=== PATIENT | male | born 1935 | race Caucasian/White ===

== ENCOUNTER 2017-03-06 12:40 | Outpatient (CLI) | payer MEDICARE ==
[2017-03-06 14:46] LABS: Hemoglobin 14.6 g/dL (14.0-18.0); Mean Corpuscular HGB CONC 33.7 g/dL (32.0-36.0); Mean Corpuscular Hemoglobin 30.3 pg (27.0-31.0); Mean Corpuscular Volume 90.1 fl (80.0-94.0); Mean Platelet Volume 8.2 fL (7.4-10.4); Platelet Count 252 thou/uL (130-400); RBC Distribution Width 14.1 % (11.5-14.5); Red Blood Cell (RBC) Count 4.81 mill/uL (4.70-6.10); White Blood Cell (WBC) Count 7.6 thou/uL (4.8-10.8)
[2017-03-06 15:14] LABS: ALT (SGPT) 14 U/L (8-55); AST (SGOT) 13 U/L (5-34); Albumin 4.5 g/dL (3.4-4.8); Alkaline Phosphatase 90 U/L (40-150); Anion Gap 16 mmol/L (10-20); BUN (Urea Nitrogen) 20 mg/dL (8.4-25.7); Calc. Creatinine Clearance 0 mL/min (70-130); Calcium 9.3 mg/dL (7.8-10.44); Carbon Dioxide 24 mmol/L (23-31); Cardiac Risk 5.7 (Less than 4.5); Chloride 101 mmol/L (98-107); Cholesterol 198 mg/dl (< 200 Desired); Estimated GFR-MDRD 49; Globulin 2.8 g/dL (2.4-3.5); Glucose 181 mg/dL (83-110); HDL Cholesterol 35 mg/dL (>60 Neg Risk); LDL Cholesterol, Calculated 137 mg/dL; Potassium 4.1 mmol/L (3.5-5.1); Protein, Total 7.3 g/dL (5.8-8.1); Sodium 137 mmol/L (136-145); Triglycerides 131 mg/dL (Less than 150)
[2017-03-06 15:20] LABS: PTT 28.6 SEC (22.9-36.1); Prothrombin Time 13.6 SEC (12.0-14.7)
--- NOTE | 2017-03-30 16:37 | EKG ---
Test Reason : Blood Pressure : / mmHG Vent. Rate : 074 BPM Atrial Rate : 074 BPM P-R Int : 152 ms QRS Dur : 074 ms QT Int : 388 ms P-R-T Axes : 043 084 042 degrees QTc Int : 430 ms Sinus rhythm with Premature atrial complexes Otherwise normal ECG No previous ECGs available Confirmed by DR. Carlene ARRIAGA ([id number]) on 03/30/2017 4:37:06 PM Referred By: JACKSON Confirmed By:DR. Carlene ARRIAGA
== END 2017-03-06 12:41 | disposition home or self-care (01) ==
LOC: LABBT 12:40
PROVIDERS: ATTEND Internal Medicine Cardiovascular Disease
DX: Z01.810 Encounter for preprocedural cardiovascular examination (principal); I25.10 Atherosclerotic heart disease of native coronary artery without angina pectoris
CPT/HCPCS: 80053; 80061; 85027; 85610; 85730; 93005; 93010

== ENCOUNTER 2017-03-08 08:05 | Day surgery (SDC) | payer MEDICARE ==
[2017-03-06 12:50] VITALS: BMI 27.7
[2017-03-08] MEDS ORDERED: Heparin 10,000 UNITS/1 ML VIAL ONE (09:55)
[2017-03-08] MEDS ORDERED: Nitroglycerin 100MG/250ML BOT 250 ML ONE (09:55)
[2017-03-08] MEDS ORDERED: Verapamil 5 MG/2 ML VIAL ONE (09:56)
[2017-03-08] MEDS ORDERED: Midazolam HCl 2 mg/2 ml Vial ONE (10:21)
[2017-03-08] MEDS ORDERED: Fentanyl 100 MCG/2 ML VIAL ONE (10:21)
== END 2017-03-08 15:43 | disposition home or self-care (01) ==
LOC: CCL 08:05
PROVIDERS: ATTEND Internal Medicine Cardiovascular Disease
DX: I25.10 Atherosclerotic heart disease of native coronary artery without angina pectoris (principal); I10 Essential (primary) hypertension; Z79.82 Long term (current) use of aspirin; Z79.899 Other long term (current) drug therapy; Z95.1 Presence of aortocoronary bypass graft; Z95.5 Presence of coronary angioplasty implant and graft
CPT/HCPCS: 85347; 93005; 93454; 93798; C1760; C1769 ×2; C1874; C1887; C9600; 92928; 99152; 99153; J1644; J2250; J3010

== ENCOUNTER 2019-03-12 16:44 | Inpatient (IN) | payer MEDICARE ==
--- NOTE | 2019-03-12 17:29 | RAD ---
Chest one view HISTORY: Sepsis. FINDINGS: Cardiac silhouette and pulmonary vasculature are unremarkable. Mediastinum is midline with aortic calcification. Oblique artifact overlies the right chest. No confluent airspace consolidation or evidence of pneumothorax. IMPRESSION: Atherosclerosis. No active cardiopulmonary abnormalities are otherwise demonstrated.
[2019-03-12 17:33] LABS: #Lymphocytes 1.6 thou/uL (1.20-3.40); #Monocytes 1.2 thou/uL (0.11-0.59); #Neutrophils 11.9 thou/uL (1.40-6.50); %Basophils 0.2 % (0.0-1.0); %Eosinophils 0.3 % (0.0-10.0); %Lymphocytes 10.8 % (21.0-51.0); %Neutrophils 80.7 % (42.0-75.0); Hemoglobin 15.2 g/dL (14.0-18.0); Mean Corpuscular HGB CONC 33.9 g/dL (32.0-36.0); Mean Corpuscular Hemoglobin 29.9 pg (27.0-31.0); Mean Corpuscular Volume 88.1 fL (78.0-98.0); RBC Distribution Width 16.6 % (11.5-14.5); Red Blood Cell (RBC) Count 5.09 mill/uL (4.70-6.10); White Blood Cell (WBC) Count 14.7 thou/uL (4.8-10.8)
[2019-03-12 17:42] LABS: Anisocytosis SLIGHT = 6-15 cells (100X) (0-5/hpf); Elliptocytes SLIGHT = 2-5 cells (100X) (0-1/hpf); Large Platelets SLIGHT; MDiff Complete? YES; Mean Platelet Volume 12.3 fL (7.4-10.4); Ovalocytes SLIGHT = 2-5 cells (100X) (0-1/hpf); Platelet Count 118 thou/uL (130-400); Platelet Morphology Comment Appears Decreased; Poikilocytosis SLIGHT = 6-15 cells (100X) (0-5/hpf)
[2019-03-12 17:48] LABS: ALT (SGPT) 97 U/L (8-55); AST (SGOT) 75 U/L (5-34); Albumin 3.5 g/dL (3.4-4.8); Alkaline Phosphatase 155 U/L (40-110); Anion Gap 15 mmol/L (10-20); BUN (Urea Nitrogen) 32 mg/dL (8.4-25.7); Calc. Creatinine Clearance 0 mL/min (70-130); Calcium 8.4 mg/dL (7.8-10.44); Carbon Dioxide 22 mmol/L (23-31); Chloride 99 mmol/L (98-107); Estimated GFR-MDRD 24; Globulin 2.4 g/dL (2.4-3.5); Glucose 167 mg/dL (83-110); Potassium 3.8 mmol/L (3.5-5.1); Protein, Total 5.9 g/dL (5.8-8.1); Sodium 132 mmol/L (136-145)
[2019-03-12 18:04] LABS: Bilirubin Negative (Negative); Blood, Urine Negative (Negative); Clarity Clear (Clear); Glucose, Urine (Dipstick) Normal (Negative); Leukocyte Negative Leu/uL (Negative); Nitrite Negative (Negative); Protein, Urine (Dipstick) 20 mg/dL (Neg-Trace); Urobilinogen Normal mg/dL (Less than 2)
[2019-03-12] MEDS ORDERED: Bisacodyl 5 MG TAB PO PRN (19:28)
[2019-03-12] MEDS ORDERED: Acetaminophen 325 MG TAB PO PRN (19:28)
[2019-03-12 19:48] LABS: CKMB 6.6 ng/mL (0-6.6)
[2019-03-12 20:34] LABS: Lactic Acid 2.5 mmol/L (0.5-2.2)
[2019-03-12] MEDS ORDERED: Dextrose 50% Abboject 50 ML SYRINGE SLOW IVP PRN (20:37)
[2019-03-12] MEDS ORDERED: HumaLOG 300 UNITS/3 ML VIAL SC PRN ×2 (20:37)
[2019-03-12] MEDS ORDERED: Dextrose 5% in Water 1,000 ML IV PRN (20:37)
[2019-03-12] MEDS ORDERED: Acetaminophen 650 MG Suppository PR PRN (20:40)
--- NOTE | 2019-03-12 21:15 | HP ---
TIME OF ASSESSMENT: 1800. REASON FOR ADMISSION: Ascites and possible CHF exacerbation. HISTORY OF PRESENT ILLNESS: Mr. Palmer is a pleasant 83-year-old gentleman who has a known history of dementia and a brain meningioma, therefore is unable to provide much information. No family at bedside. Able to answer questions appropriately as far as how he is feeling at this present time. The patient denies having any pain. Has no chest pain or shortness of breath. Denies any abdominal pain. States he is unsure why he is here. Reports living with his . Per the ED note, he was brought in due to persistent vomiting for the last several days. He has been getting progressively weak for the last several days. Has also had decreased oral intake. According to the ED notes, the patient reportedly fell 3 times of this week, but did not have any injuries. The patient was initially brought in to [place] ER, where he underwent an EKG that showed normal sinus rhythm with a heart rate of 87. There was concern for dehydrations, therefore, he received 2 L of IV fluids and was started on IV antibiotics with vancomycin and Zosyn. He was not febrile at any time. Blood pressure was stable and heart rate was normal. He underwent laboratory studies that showed an elevated white count of 14.7, neutrophil of 88.7%. Sodium low at 135 and when repeated here, it was further decreased to 132. BUN elevated at 36 and slightly improved to 32 on repeated. His creatinine was elevated at 2.83 and improved to 2.60 following fluids. Total bilirubin elevated at 3.4, AST 75, ALT 97, alkaline phosphatase 155. CK-MB is 6.6. Troponin 0.135. Urinalysis done was unremarkable. Chest x-ray obtained was also unremarkable. On arrival to the emergency department here, he was given IV fluids (NS at 150 mL/hr) Of note, the patient recently underwent a catheterization which showed a previously placed proximal LAD stent patent with mild ISR, severe distal LAD lesion, small vessel toward apex. Mild LM disease, mild to moderate LCX disease, severe mid RCA disease status post successful PCI with LARRY. The patient had been recommended Brilinta and aspirin 81 mg for one year and then aspirin indefinitely based on those findings. Catheterization had been done by Dr. Elias. REVIEW OF SYSTEMS: Difficult to obtain given underlying dementia. At this present time, the patient has no complaints. No family at bedside. PAST MEDICAL HISTORY: 1. Hypertension. 2. Brain meningioma. 3. Glaucoma. 4. Cataracts. 5. Skin cancer. 6. Seizures. 7. Type 2 diabetes. 8. Stage 3 chronic kidney disease. 9. Asthma. PAST SURGICAL HISTORY: 1. Cardiac stents x2. 2. Hernia repair. 3. Tonsillectomy. 4. Cataract surgery. 5. Skin lesion removed. SOCIAL HISTORY: The patient lives with his family. Denies any alcohol consumption or illicit drug use. No tobacco use. States he mobilizes independently. ALLERGIES: No known drug allergies. CURRENT MEDICATIONS: 1. Aspirin 2. Atorvastatin. 3. Plavix. 4. Glipizide. 5. Latanoprost. 6. Keppra. 7. Losartan/HCTZ. 8. Coreg. PHYSICAL EXAMINATION: GENERAL: The patient appears well developed, well nourished, is in no acute distress. VITAL SIGNS: Temperature 98.5, pulse 89, blood pressure 143/114, O2 saturation 98% on room air, repeat blood pressure was 129/100. HEENT: Normocephalic and atraumatic. Pupils are equal, round, and reactive to light. Sclerae without icterus. Oropharynx is clear. Oral mucosa dry. NECK: Supple. LUNGS: Clear to auscultation bilaterally without wheezes, rales, or rhonchi. CARDIAC: Regular rate and rhythm. ABDOMEN: Distended, but soft, nontender. No guarding or rigidity. No renal angle tenderness. EXTREMITIES: Notable for +1 pitting edema involving the bilateral lower extremities. Power 5/5 in all limbs. The patient able to pull himself up on the stretcher and sit upright. NEUROLOGIC: Alert and oriented to person and place. No neuro deficits on exam. The patient does have underlying dementia. SKIN: Dry. INVESTIGATIONS: As mentioned above in HPI. IMPRESSION AND PLAN: Mr. Palmer is a very pleasant 83-year-old gentleman who has underlying dementia and brain meningioma as well as known coronary artery disease and hypertension, being admitted for persistent nausea, vomiting, and dehydration. The patient without any nausea or vomiting at present. CT of the abdomen and pelvis was apparently done at [facility] and showed ascites. Also diverticulosis and nonspecific hyperdensity emanating from the right kidney which represents a hyperdense cyst. Chest x-ray unremarkable. Urinalysis normal. No clear source for infection. White count is elevated at 14.7. LFTs deranged. It appears that the patient is experiencing fluid overload; per discussion with Dr. Washington we will add BNP. Hold IV fluids and if needed, resume gentle hydration. Continue to trend LFTs. Also continue to monitor renal function, which has slightly improved. Consider Nephrology consult if no further improvement. He did have an indeterminate troponin 0.135 and we will continue to trend troponins. The patient is asymptomatic at present. We will monitor blood pressure and resume home medications once verified. P.r.n. antihypertensives will be ordered as well. Monitor blood glucose and initiate insulin sliding scale. Gastrointestinal prophylaxis with famotidine. Deep venous thrombosis prophylaxis with mechanical SCDs. Code status is full. His surrogate decision maker is his , Josseline Palmer. Case discussed with Dr. Washington, who agrees with plan of care as described above. Job ID: [id number] MTDD
[2019-03-12] MEDS ORDERED: Atorvastatin Calcium 40 MG TAB PO SCH (21:45)
[2019-03-12] MEDS ORDERED: Latanoprost 0.005% Ophth Soln 2.5 ml Bottle EA EYE SCH (21:45)
[2019-03-12] MEDS ORDERED: Brimonidine Tartrate 0.2% Ophth Soln 5 ml Bottle EA EYE SCH (21:45)
[2019-03-12] MEDS ORDERED: Timolol 0.5% Ophth Soln 5 ml Bottle EA EYE SCH (21:45)
[2019-03-12 22:27] LABS: ALT (SGPT) 105 U/L (8-55); AST (SGOT) 88 U/L (5-34); Albumin 3.6 g/dL (3.4-4.8); Alkaline Phosphatase 163 U/L (40-110); Anion Gap 16 mmol/L (10-20); BUN (Urea Nitrogen) 34 mg/dL (8.4-25.7); Bilirubin, Total 2.9 mg/dL (0.2-1.2); Calc. Creatinine Clearance 25 mL/min (70-130); Calcium 8.5 mg/dL (7.8-10.44); Carbon Dioxide 24 mmol/L (23-31); Chloride 98 mmol/L (98-107); Estimated GFR-MDRD 22; Globulin 2.5 g/dL (2.4-3.5); Glucose 186 mg/dL (83-110); Potassium 3.9 mmol/L (3.5-5.1); Protein, Total 6.1 g/dL (5.8-8.1); Sodium 134 mmol/L (136-145)
[2019-03-12] MEDS ORDERED: Vancomycin 1.5 GRAM/300 ML BAG 1.5 GM in Premix Bag 1 BAG IVPB SCH (22:45)
[2019-03-12] MEDS ORDERED: Piperacillin/Tazobactam 4.5 GM in Sodium Chloride 0.9% 100 ML IVPB SCH (23:00)
[2019-03-12] MEDS: Famotidine/PF 20 mg/2ml Vial SLOW IVP SCH (23:15)
[2019-03-12] MEDS ORDERED: Carvedilol 6.25 MG TAB PO SCH (23:15)
--- NOTE | 2019-03-12 23:43 | ULT ---
Sonogram right upper quadrant HISTORY: Right upper quadrant patent. Abnormal liver function tests. FINDINGS: Shadowing stones are present within the gallbladder lumen that is incompletely distended. N o gallbladder wall thickening or pericholecystic fluid. Common duct is 0.2 cm. Liver unremarkable without focal mass or intrahepatic biliary dilatation. Small amount of free fluid. IMPRESSION: Cholelithiasis. No evidence of acute biliary obstruction. Free fluid within the abdomen.
[2019-03-13 04:55] LABS: #Basophils 0.1 thou/uL (0.0-0.2); #Eosinphils 0.2 thou/uL (0.0-0.7); #Monocytes 1.3 thou/uL (0.11-0.59); #Neutrophils 9.4 thou/uL (1.40-6.50); %Basophils 0.6 % (0.0-1.0); %Eosinophils 1.3 % (0.0-10.0); %Lymphocytes 15.6 % (21.0-51.0); %Monocytes 10.2 % (0.0-10.0); %Neutrophils 72.4 % (42.0-75.0); Hemoglobin 14.3 g/dL (14.0-18.0); Mean Corpuscular HGB CONC 32.3 g/dL (32.0-36.0); Mean Corpuscular Hemoglobin 28.3 pg (27.0-31.0); Mean Corpuscular Volume 87.7 fL (78.0-98.0); Platelet Count 141 thou/uL (130-400); RBC Distribution Width 16.7 % (11.5-14.5); Red Blood Cell (RBC) Count 5.04 mill/uL (4.70-6.10); White Blood Cell (WBC) Count 12.9 thou/uL (4.8-10.8)
[2019-03-13] MEDS: Piperacillin/Tazobactam 2.25 GM in Sodium Chloride 0.9% 100 ML IVPB SCH ×2 (05:16→12:16)
[2019-03-13] MEDS ORDERED: Carvedilol 3.125 MG TAB PO SCH (09:00)
[2019-03-13] MEDS ORDERED: LEVETIRACETAM 500 MG PO SCH (09:00)
[2019-03-13] MEDS ORDERED: Brimonidine Tartrate 0.2% Ophth Soln 5 ml Bottle EA EYE SCH (09:00)
[2019-03-13] MEDS: DorzolamidE/Timolol 2%/0.5% Ophth Soln 10 ml Bottle EA EYE SCH ×2 (09:00→20:45)
[2019-03-13] MEDS ORDERED: Timolol 0.5% Ophth Soln 5 ml Bottle EA EYE SCH (09:00)
[2019-03-13] MEDS ORDERED: Enoxaparin Sodium 40 MG/0.4 ML SYRINGE SC SCH (09:00)
[2019-03-13] MEDS: Carvedilol 6.25 MG TAB PO SCH ×2 (10:07→20:35)
[2019-03-13] MEDS: Famotidine/PF 20 mg/2ml Vial SLOW IVP SCH (10:07)
[2019-03-13] MEDS: Aspirin 81 mg Enteric Coated Tablet PO SCH (10:07)
[2019-03-13] MEDS: Clopidogrel Bisulfate 75 MG TAB PO SCH (10:07)
--- NOTE | 2019-03-13 20:11 | PDOC.HOSPP ---
- Subjective Subjective: Feels well. No complaints. Eating well. Drinking well. No nausea. Got up with PT. - Objective Vital Signs & Weight: Vital Signs (12 hours) Temp Pulse Pulse Pulse Resp BP BP 03/13/19 15:28 97.5 F L 87 20 03/13/19 14:10 81 80 128/86 146/83 H 03/13/19 11:48 98.7 F 79 16 03/13/19 10:17 03/13/19 09:56 97.7 F 93 19 BP Pulse Ox 03/13/19 15:28 148/87 H 97 03/13/19 14:10 03/13/19 11:48 131/75 97 03/13/19 10:17 96 03/13/19 09:56 122/86 96 Weight Admit Weight 192 lb 3.2 oz Weight 193 lb I&O: 03/12/19 03/13/19 03/14/19 06:59 06:59 06:59 Intake Total 450 720 Balance 450 720 Result Diagrams: 03/13/19 04:16 03/12/19 21:52 Additional Labs: Accuchecks 03/13/19 03/13/19 03/13/19 16:22 11:10 05:56 POC Glucose 226 H 144 H 155 H Hospitalist ROS - Medication Medications: Active Medications Generic Name Dose Route Start Last Admin Trade Name Marta PRN Reason Stop Dose Admin Aspirin 81 mg 03/13/19 09:00 03/13/19 10:07 Ecotrin PO 81 mg DAILY RHEA Administration Carvedilol 6.25 mg 03/13/19 09:00 03/13/19 10:07 Coreg PO 6.25 mg BID RHEA Administration Clopidogrel Bisulfate 75 mg 03/13/19 09:00 03/13/19 10:07 Plavix PO 75 mg DAILY RHEA Administration Dorzolamide/Timolol 1 drop 03/13/19 09:00 03/13/19 09:00 Cosopt 2-0.5% Ophth Soln EA EYE Not Given BID RHEA Latanoprost 1 drop 03/13/19 21:00 03/13/19 10:08 Xalatan 0.005% Ophth Soln EA EYE 1 drop HS RHEA Administration - Exam General Appearance: NAD, awake alert Neck: supple, symmetric, no JVD, no thyromegaly, no lymphadenopathy, no carotid bruit Heart: RRR, no murmur, no gallops, no rubs, normal peripheral pulses Respiratory: CTAB, no wheezes, no rales, no ronchi, normal chest expansion, no tachypnea, normal percussion Gastrointestinal: soft, non-tender, non-distended, normal bowel sounds, no palpable masses, no hepatomegaly, no splenomegaly, no bruit Extremities: no cyanosis, no clubbing, no edema Musculoskeletal: normal tone, normal strength, no muscle wasting Psychiatric: normal affect, normal behavior, A&O x 3 Hosp A/P (1) Nausea & vomiting Code(s): R11.2 - NAUSEA WITH VOMITING, UNSPECIFIED Status: Acute (2) Dehydration Code(s): E86.0 - DEHYDRATION Status: Acute (3) Elevated LFTs Code(s): R94.5 - ABNORMAL RESULTS OF LIVER FUNCTION STUDIES Status: Acute (4) CAD (coronary artery disease) Code(s): I25.10 - ATHSCL HEART DISEASE OF [place] CORONARY ARTERY W/O ANG PCTRS Status: Acute (5) HTN (hypertension) Code(s): I10 - ESSENTIAL (PRIMARY) HYPERTENSION Status: Acute (6) Leukocytosis Code(s): D72.829 - ELEVATED WHITE BLOOD CELL COUNT, UNSPECIFIED Status: Acute (7) Diabetes mellitus Code(s): E11.9 - TYPE 2 DIABETES MELLITUS WITHOUT COMPLICATIONS Status: Acute (8) Meningioma Code(s): D32.9 - BENIGN NEOPLASM OF [place]ENING[place], UNSPECIFIED Status: Acute - Plan Doing well. No N/V. Eating and drinking with no problem. No abd. pain. WBC improving. LFT's basically stable. Abd. US nml. Echo P. If he continues to do well in am and echo ok, consider DC.
[2019-03-13] MEDS: levETIRAcetam 500 MG TAB PO SCH (20:35)
[2019-03-13] MEDS ORDERED: Latanoprost 0.005% Ophth Soln 2.5 ml Bottle EA EYE SCH (21:00)
[2019-03-13] MEDS ORDERED: Atorvastatin Calcium 40 MG TAB PO SCH (21:00)
[2019-03-13] MEDS ORDERED: Vancomycin HCl 750 MG in Sodium Chloride 0.9% 250 ML 250 ML IVPB SCH (23:59)
[2019-03-14 04:44] LABS: ALT (SGPT) 113 U/L (8-55); AST (SGOT) 83 U/L (5-34); Albumin 3.3 g/dL (3.4-4.8); Alkaline Phosphatase 140 U/L (40-110); Anion Gap 13 mmol/L (10-20); BUN (Urea Nitrogen) 44 mg/dL (8.4-25.7); Bilirubin, Total 2.1 mg/dL (0.2-1.2); Calc. Creatinine Clearance 22 mL/min (70-130); Calcium 8.2 mg/dL (7.8-10.44); Carbon Dioxide 25 mmol/L (23-31); Chloride 99 mmol/L (98-107); Estimated GFR-MDRD 19; Globulin 2.4 g/dL (2.4-3.5); Glucose 215 mg/dL (83-110); Potassium 3.5 mmol/L (3.5-5.1); Protein, Total 5.7 g/dL (5.8-8.1); Sodium 133 mmol/L (136-145)
[2019-03-14 05:02] LABS: #Basophils 0.1 thou/uL (0.0-0.2); #Eosinphils 0.2 thou/uL (0.0-0.7); #Lymphocytes 1.4 thou/uL (1.20-3.40); #Monocytes 1.1 thou/uL (0.11-0.59); #Neutrophils 7.9 thou/uL (1.40-6.50); %Basophils 0.7 % (0.0-1.0); %Eosinophils 2.1 % (0.0-10.0); %Lymphocytes 12.7 % (21.0-51.0); %Monocytes 10.1 % (0.0-10.0); %Neutrophils 74.4 % (42.0-75.0); Elliptocytes MARKED = >16 cells (100X) (0-1/hpf); Hemoglobin 13.5 g/dL (14.0-18.0); MDiff Complete? YES; Mean Corpuscular HGB CONC 33.1 g/dL (32.0-36.0); Mean Corpuscular Hemoglobin 28.9 pg (27.0-31.0); Mean Corpuscular Volume 87.4 fL (78.0-98.0); Mean Platelet Volume 9.8 fL (7.4-10.4); Platelet Count 117 thou/uL (130-400); Platelet Morphology Comment Appears Decreased; Poikilocytosis SLIGHT = 6-15 cells (100X) (0-5/hpf); RBC Distribution Width 16.5 % (11.5-14.5); Red Blood Cell (RBC) Count 4.67 mill/uL (4.70-6.10); White Blood Cell (WBC) Count 10.6 thou/uL (4.8-10.8)
[2019-03-14] MEDS ORDERED: Famotidine/PF 20 mg/2ml Vial SLOW IVP SCH (09:00)
[2019-03-14] MEDS: levETIRAcetam 500 MG TAB PO SCH (09:16)
[2019-03-14] MEDS: Aspirin 81 mg Enteric Coated Tablet PO SCH (09:16)
[2019-03-14] MEDS: Carvedilol 6.25 MG TAB PO SCH (09:16)
[2019-03-14] MEDS: Clopidogrel Bisulfate 75 MG TAB PO SCH (09:16)
[2019-03-14] MEDS: DorzolamidE/Timolol 2%/0.5% Ophth Soln 10 ml Bottle EA EYE SCH (09:17)
[2019-03-14 11:37] VITALS: BMI 30.4
[2019-03-14 16:39] VITALS: BP 99/65; TEMP 96.7
--- NOTE | 2019-03-15 10:37 | DIS ---
DATE OF ADMISSION: 03/12/2019 DATE OF DISCHARGE: 03/14/2019 DISCHARGE DIAGNOSES: 1. Nausea and vomiting. 2. Dehydration. 3. Elevated liver enzymes. 4. Coronary artery disease. 5. Hypertension. 6. Leukocytosis. 7. Diabetes mellitus. 8. Meningioma. 9. Acute on chronic kidney injury. 10. Chronic kidney disease, stage 3. 11. Elevated troponins, felt to be essentially normal for age and renal function. HISTORY OF PRESENT ILLNESS: This patient is an 83-year-old male with a history of known coronary artery disease, followed by Dr. Elias with a fairly recent heart catheterization with significant coronary artery disease and prior stenting, who presented initially to the [facility] with a history of several days of intractable nausea and vomiting and decreased oral intake and had fallen a couple of times previously in the week. He initially presented to the [place] [facility] where he had concerns for dehydration, received a couple of liters of fluid and was started empirically on vancomycin and Zosyn without a specific indication of infection. White count was 14.7 and slight worsening renal function based on his previous baselines and had elevated liver enzymes including total bilirubin elevated at 3.4 and a troponin of 0.135. Chest x-ray was unremarkable. The patient was hydrated aggressively and subsequently transferred to our facility. HOSPITAL COURSE: The patient's symptoms of nausea and vomiting appeared to bill fairly promptly. He was subsequently able to eat and drink adequate amounts of fluids without difficulty. A CT scan of the abdomen in [place] revealed a hyperdense renal cyst, some cholelithiasis, some diverticulosis and concern for ascites. Followup ultrasound at our facility showed an unremarkable liver with some cholelithiasis, but no evidence of obstruction or acute cholecystitis. The patient had no abdominal pain on his exam. Followup echocardiogram showed a very limited study, but what appeared to be normal ejection fraction. His labs revealed improvement of his leukocytosis. His liver enzymes remained slightly elevated, but his bilirubin progressively declined down to 2.1. He was getting up with physical therapy using a walker. He did have some difficulty with sleep in the hospital and was up for a good bit of the night and slept for a good portion of the day. However, the patient's reported that was not significantly uncommon for him and felt like he would do best returning back to his home environment. Ultimately, it was felt that the patient may have passed a biliary stone, causing elevation of liver enzymes and bilirubin, which were somewhat improving. 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 He was felt appropriate for discharge home on the day of discharge. Temperature was 97.6, pulse 78, respirations 16, O2 saturation was 97% on room air, and BP ranged from 99/65 to 122/78. He was generally sleepy throughout the day of discharge, but had gotten up and walked with physical therapy. DISPOSITION: The patient was discharged to home. He will have home health and home physical therapy. He will need his labs repeated soon as was discussed with the patient's , and I attempted to send a message to Prachi Estevez, his primary care provider, but at the time of discharge, not received reply. He will be on a heart healthy diabetic diet. ACTIVITY: As tolerated. DISCHARGE MEDICATIONS: Will include, 1. Xalatan eye drops one drop each eye at bedtime. 2. Aspirin 81 mg daily. 3. Losartan and hydrochlorothiazide 100-12.5 one p.o. daily. 4. Atorvastatin 40 mg at bedtime. 5. Glipizide 5 mg q.a.m. 6. Plavix 75 mg daily. 7. Keppra 500 mg daily. 8. Dorzolamide one drop each eye daily. 9. Carvedilol 6.25 mg b.i.d. DISCHARGE FOLLOWUP: He is to follow up with Prachi Estevez, and home health will be established. He can return to the hospital at anytime should he have the need to do so. Time spent in discharge activities was 33 min. Job ID: [id number] MTDD
--- NOTE | 2019-03-17 00:42 | PQF ---
GIOVANA PEREYRA DAVID R MD [id number] CLINICAL DOCUMENTATION CLARIFICATION FORM: POST DISCHARGE Addendum to original discharge summary date: ____ Late entry note date: __ DATE: 03/17/2019 ATTN: Mark Ferro Please exercise your independent, professional judgment in responding to the clarification form. Clinical indicators are provided on the bottom of this form for your review In your clinical opinion based on clinical findings below, can you please identify the etiology of Nausea and vomiting if due to: Please check appropriate box(s): [ ] Cholelithiasis [ ] Dehydration [ ] Other diagnosis [ x ] Unable to determine In addition, please specify: Present on Admission (POA): [ ] Yes [ ] No [ ] Unable to determine For continuity of documentation, please document condition throughout progress notes and discharge summary. Thank You. CLINICAL INDICATORS - SIGNS / SYMPTOMS / LABS Laboratory Chemistry 03/12 BUN 32, 2.60 H&P p3 03/12 Tasha BURTON Being admitted for persistent nausea, vomiting and dehydration Discharge summary p1 03/14 Dr Garcia Followup ultrasound at our facility showered unremarkable liver with some cholelithiasis but no evidence of obstruction or acute cholecystitis RISK FACTORS H&P p1 03/12 83 year-old gentlemen H&P p3 03/12 Dehydration H&P p3 03/12 Renal failure TREATMENTS: APR 26 IV Pepcid APR 26 IV Hydration H&P p3 03/12 Monitor renal function (This form is maintained as a part of the permanent medical record) 2014 [employer]. All Rights Reserved [email or web address] [not provided] MTDD
== END 2019-03-14 19:00 | disposition home health service (06) | DRG 392 ==
LOC: ERS 16:44 → 2NO 21:05
PROVIDERS: ADMIT Internal Medicine; ATTEND Internal Medicine
DX: R11.2 Nausea with vomiting, unspecified (principal); N17.9 Acute kidney failure, unspecified; E86.0 Dehydration; N18.3 Chronic kidney disease, stage 3 (moderate); I25.10 Atherosclerotic heart disease of native coronary artery without angina pectoris; R94.5 Abnormal results of liver function studies; I12.9 Hypertensive chronic kidney disease with stage 1 through stage 4 chronic kidney disease, or unspecified chronic kidney disease; E11.22 Type 2 diabetes mellitus with diabetic chronic kidney disease; R79.89 Other specified abnormal findings of blood chemistry; K80.20 Calculus of gallbladder without cholecystitis without obstruction; H40.9 Unspecified glaucoma; J45.909 Unspecified asthma, uncomplicated; G40.909 Epilepsy, unspecified, not intractable, without status epilepticus; Z86.011 Personal history of benign neoplasm of the brain; Z85.828 Personal history of other malignant neoplasm of skin; Z95.5 Presence of coronary angioplasty implant and graft
CPT/HCPCS: 36415; 36416; 71045; 76705; 80053; 81003; 82553; 83605; 83690; 83880; 85025; 85060; 93306; 96360; 96361; J2543; J3490; S0028

== ENCOUNTER 2019-04-04 15:43 | Inpatient (IN) | payer MEDICARE ==
--- NOTE | 2019-04-04 16:21 | PDOC.FPRHP ---
- History of Present Illness Chief Complaint: Low BP, feeling bad History of Present Illness: Levi Palmer is an 83 year old M with a PMH of CAD s/p Stent, meningioma, HTN, Dementia, DM2, CKD who was transferred for [place] ED for sepsis. Pt saw PCP today and had BP of 62/48. He was sent to [place] ED where he was given 500 cc NS, 1 g Vanc, 2 g Cefepime. He states that he has been feeling weak and had abdominal pain with associated nausea for the last couple days. Denies any fever, chills, falls, vision changes, headaches, chest pain, dyspnea , dysuria. Pt is poor historian and does not provide reliable medical history or HPI. History predominantly for ERMD report and documentation. Spouse provided some history. In November, he had two seizures. He has slowly not been doing well since. Saw Dr. Torres and pt/family decided against surgical intervention. Went to clinic today for follow up for medications. Weakness over last few weeks due to vomiting. Bellstand Attendant: Curt PCP: Quinton Estevez [place] Neurologist: Melissa - Allergies/Adverse Reactions Allergies Allergy/AdvReac Type Severity Reaction Status Date / Time No Known Allergies Allergy Unverified 03/06/17 12:50 - Home Medications Medication Instructions Recorded Confirmed Type Aspirin [Aspir-Low] 81 mg PO DAILY 03/06/17 03/12/19 History Latanoprost [Xalatan 0.005% Ophth 1 drop EA EYE HS 03/06/17 03/12/19 History Soln] Losartan/Hydrochlorothiazide 1 tab PO DAILY 03/06/17 03/12/19 History [Losartan-Hctz 100-12.5 mg Tab] Atorvastatin Calcium [Lipitor] 40 mg PO HS 03/08/17 03/12/19 History Clopidogrel Bisulfate [Plavix] 75 mg PO DAILY 03/12/19 03/12/19 History Dorzolamide HCl/Timolol Maleat 1 drop EA EYE BID 03/12/19 03/12/19 History [Cosopt Ophth Solution] glipiZIDE [glipiZIDE ER] 5 mg PO QAM-WM 03/12/19 03/12/19 History levETIRAcetam [Levetiracetam ER] 500 mg PO DAILY 03/12/19 03/12/19 History Carvedilol [Coreg] 6.25 mg PO BID #60 tab 03/14/19 Rx - History PMHx: Meningioma, PSHx: FHx: Social: - Vital signs BP: [] HR: [] RR: [] Tmax: [] Pox: []% on [] Wt: [] FMR H&P: Upper Level - Plan Date/Time: 04/04/19 1620 I, [], have evaluated this patient and agree with findings/plan as outlined by architect intern resident. Pertinent changes/additions are listed here.
[2019-04-04 18:38] LABS: Troponin I 0.196 ng/mL (< 0.028)
[2019-04-04] MEDS ORDERED: Acetaminophen 325 MG TAB PO PRN (18:39)
[2019-04-04] MEDS ORDERED: Ondansetron PF 4 MG/2 ML Vial IVP PRN (19:59)
[2019-04-04] MEDS ORDERED: Ondansetron ODT 4 MG TAB SL PRN (19:59)
[2019-04-04] MEDS ORDERED: Cefepime 1 GM in Sodium Chloride 0.9% 100 ML IVPB SCH (21:00)
[2019-04-04 21:25] VITALS: BMI 30.6
[2019-04-04] MEDS: Sodium Chloride 0.9% 1,000 ML IV SCH (21:43)
[2019-04-04] MEDS: Heparin 5,000 UNITS/ML VIAL SC SCH (22:17)
[2019-04-04 22:28] LABS: Troponin I 0.154 ng/mL (< 0.028)
[2019-04-04] MEDS: DorzolamidE/Timolol 2%/0.5% Ophth Soln 10 ml Bottle EA EYE SCH (22:39)
[2019-04-04] MEDS: Latanoprost 0.005% Ophth Soln 2.5 ml Bottle EA EYE SCH (22:39)
--- NOTE | 2019-04-05 00:24 | HP ---
CHIEF COMPLAINT: Hypertension, weakness. HISTORY OF PRESENT ILLNESS: The patient is an 83-year-old male who resides in a longterm, who presents to the hospital for generalized weakness and was found to be hypotensive at the clinic today. His blood pressure was noted to be in the low 60s. At this time, he was transported to the ER for further evaluation. He was given a total of 500 mL of normal saline, which had good results with his blood pressure. He was admitted here for possible sepsis protocol. The patient's is at the bedside. She states that the patient has been having ongoing nausea for the past 3 weeks. He was seen here in February for nausea and at that time, CT of abdomen and pelvis was done which did not indicate any acute abnormalities except for renal cyst versus mass. He did also have a brain CT. The patient has a known history of meningioma and he also has history of seizures with possible even normal pressure hydrocephalus. The patient does follow Neurology. The patient also had a workup done with an abdominal ultrasound, which did not indicate any acute abnormalities. The ultrasound indicated just cholelithiasis. No evidence of acute biliary obstruction. The patient's states that at times she has noticed that the patient will have abdominal pain and more nausea after eating a fatty meal. PAST MEDICAL HISTORY: As of the followin. He has a history of nonspecific dementia. 2. He has a history of brain meningioma. 3. Seizures. 4. Glaucoma. 5. Cataracts. 6. Type 2 diabetes. 7. Chronic kidney disease stage 3. 8. Asthma. PAST SURGICAL HISTORY: Cardiac stents x2, hernia repair, tonsillectomy, cataract surgery, skin lesion removed. SOCIAL HISTORY: He is currently a DNR. I did speak with the patient's . There is no history of alcohol use, drug use, or tobacco history. The patient currently is not very mobile. ALLERGIES: NO KNOWN DRUG ALLERGIES. MEDICATIONS: Through his last discharge are as of the followin. He is on aspirin 81 mg daily. 2. Losartan and hydrochlorothiazide. 3. Atorvastatin 40 mg at bedtime. 4. Glipizide 5 mg q.a.m. 5. Plavix 75 mg daily. 6. Keppra 500 mg daily. 7. Dorzolamide one drop each eye daily. 8. Carvedilol 6.25 b.i.d. REVIEW OF SYSTEMS: Unable to obtain. PHYSICAL EXAMINATION: VITAL SIGNS: As of the following: Temperature 97.9, respirations 18, 98% on room air, pulse of 79, blood pressure of 124/85. GENERAL: The patient is awake, alert, and oriented x2. CV: S1, S2 present. No murmurs, rubs, or gallops. LUNGS: Clear to auscultation. No rhonchi or wheezes noted. ABDOMEN: Soft and nontender. Bowel sounds are present x2. EXTREMITIES: He does have +2 edema. Pedal pulses are present x2. NEUROVASCULAR: Neurovascular-renner, no focal deficits noted. SKIN: No cuts, lesions or bruises noted. LABORATORY RESULTS: As of the following; WBCs of 11.0, hemoglobin of 16.1, hematocrit of 54.2, platelets of 175. Chemistries; sodium of 132, potassium of 4.2, BUN of 101, creatinine 4.53, baseline is 3.7. Lactic acid is 2.4. Bilirubin is 2.0, AST is 44, ALT is 39, alkaline phosphatase is 164. Troponin is 0.189. BNP is 1042. TSH is 4.78. The patient did have a chest x-ray and upon my evaluation, chest x-ray appears to have mild pulmonary congestion. ASSESSMENT AND PLAN: The patient is a very pleasant 83-year-old male, who presents to the hospital with complaints of hypotension. 1. Hypotension, possibly sepsis. However, patient's chest x-ray does not show any acute physiology of possible infectious etiology. I will go ahead and do an influenza swab, urine was not collected. The patient has already received antibiotics, however, we will collect urine. He has been having nausea. Gallbladder etiology is a possibility. We will get a HIDA scan ordered for him for better evaluation. I will also start him on some cefepime for tonight. The patient has been resuscitated with IV hydration. I did speak with Nephrology and we will continue normal saline at 50 mL an hour for another liter. 2. Lactic acidosis most likely secondary to problem #1. We will continue mild hydration. We will continue to monitor. 3. Hypotension. This could be possible some pericardial effusion. The patient's last echo that was done in February indicated some pericardial effusion. I have asked the ER physician to do a bedside echo just to make sure that there is no pericardial effusion. Given the fact that I do not really have a specific etiology for his hypotension except for dehydration, which is definitely a possibility. I will continue the IV hydration and adjust with gentle hydration if his blood pressure has improved dramatically. I will hold his blood pressure medications for now. 4. Acute kidney injury and chronic kidney disease stage 3. Nephrology has been consulted. We will continue to monitor. 5. Mild elevated LFTs. The patient also was noted to have some ascites. This could be related to possibly some right heart failure, could cause some portal congestion. I am not sure about that and we will continue to monitor. 6. Elevated troponins. We will trend the troponins. EKG indicated very low voltage. If troponins tend to worsen, consult Cardiology. However, patient's family does want Cardiology to be consulted. I will also get an echocardiogram. 7. Deep venous thrombosis prophylaxis. We will put the patient on subcu heparin. Job ID: [id number]
[2019-04-05] MEDS: Cefepime 1 GM in Sodium Chloride 0.9% 100 ML IVPB SCH ×2 (01:34→17:21)
[2019-04-05 02:25] LABS: #Basophils 0.1 thou/uL (0.0-0.2); #Eosinphils 0.1 thou/uL (0.0-0.7); #Lymphocytes 1.7 thou/uL (1.20-3.40); #Neutrophils 8.1 thou/uL (1.40-6.50); %Basophils 0.8 % (0.0-1.0); %Eosinophils 0.6 % (0.0-10.0); %Lymphocytes 15.6 % (21.0-51.0); %Monocytes 9.1 % (0.0-10.0); %Neutrophils 73.8 % (42.0-75.0); Hemoglobin 15.8 g/dL (14.0-18.0); Mean Corpuscular HGB CONC 32.5 g/dL (32.0-36.0); Mean Corpuscular Hemoglobin 29.9 pg (27.0-31.0); Mean Corpuscular Volume 92.2 fL (78.0-98.0); Mean Platelet Volume 13.8 fL (7.4-10.4); Platelet Count 140 thou/uL (130-400); RBC Distribution Width 18.1 % (11.5-14.5); Red Blood Cell (RBC) Count 5.28 mill/uL (4.70-6.10)
[2019-04-05 02:46] LABS: Anion Gap 18 mmol/L (10-20); BUN (Urea Nitrogen) 97 mg/dL (8.4-25.7); Calc. Creatinine Clearance 16 mL/min (70-130); Carbon Dioxide 19 mmol/L (23-31); Chloride 98 mmol/L (98-107); Estimated GFR-MDRD 13; Glucose 202 mg/dL (83-110); Potassium 4.6 mmol/L (3.5-5.1); Sodium 130 mmol/L (136-145)
[2019-04-05 02:47] LABS: Troponin I 0.158 ng/mL (< 0.028)
[2019-04-05 06:14] LABS: Bacteria/HPF None Seen HPF (None Seen); Bilirubin Negative (Negative); Blood, Urine Negative (Negative); Clarity Clear (Clear); Glucose, Urine (Dipstick) Normal (Negative); Leukocyte Negative Leu/uL (Negative); Nitrite Negative (Negative); Protein, Urine (Dipstick) 20 mg/dL (Neg-Trace); RBC/HPF 0-3 HPF (0-3); Squamous Epithelial 0-3 HPF (0-3); Urobilinogen Normal mg/dL (Less than 2); WBC/HPF 0-3 HPF (0-3)
[2019-04-05 06:16] LABS: Urine Culture Reflex No No
[2019-04-05] MEDS ORDERED: Lorazepam 2 MG/ML VIAL SLOW IVP PRN (08:23)
[2019-04-05] MEDS: Aspirin 81 mg Enteric Coated Tablet PO SCH (08:44)
[2019-04-05] MEDS: Heparin 5,000 UNITS/ML VIAL SC SCH ×2 (08:45→21:36)
[2019-04-05] MEDS: levETIRAcetam 500 MG TAB PO SCH (08:45)
[2019-04-05] MEDS: DorzolamidE/Timolol 2%/0.5% Ophth Soln 10 ml Bottle EA EYE SCH ×2 (08:46→21:35)
--- NOTE | 2019-04-05 13:11 | PRG ---
DATE OF SERVICE: 04/05/2019 SUBJECTIVE: Patient was seen and examined at bedside and overnight events noted. Patient denies any shortness of breath or chest pain or palpitation. No history of nausea or vomiting or diarrhea or fever or chills or cramps. OBJECTIVE: GENERAL: This is a well build male, in no acute distress. VITAL SIGNS: Temperature 98.7, pulse 80, respiratory rate 18. Blood pressure 99/65. HEENT: Atraumatic, normocephalic. Oral mucosa is moist NECK: Supple. CARDIOVASCULAR: S1, S2 heard. Rate and rhythm regular. RESPIRATORY: Clear to auscultation. GASTROINTESTINAL: Abdomen is soft. MUSCULOSKELETAL: No tenderness. No edema. DERMATOLOGIC: No skin rash. NEUROLOGIC: Alert and awake and oriented X3. No focal neurologic deficits. Moving all the extremities. PSYCHIATRIC: Mood and affect normal. LABORATORY DATA: Potassium is 4.6, BUN is 97, creatinine is 4.2. ASSESSMENT AND PLAN: 1. Acute kidney injury on chronic kidney stage 4, stable. 2. Hyponatremia, limit fluid. 3. Acidosis. 4. Edema, controlled. 5. Hypoalbuminemia. 6. Renal lesion. We will check renal ultrasound. 7. Continue IV fluids as tolerated. We will follow. Job ID: [id number]
[2019-04-05] MEDS ORDERED: Morphine 2 MG/ML SYRINGE SLOW IVP SCH (14:15)
--- NOTE | 2019-04-05 14:55 | CON ---
DATE OF CONSULTATION: 04/04/2019 The patient was seen at the ER and this is a late entry. CONSULTING PHYSICIAN: Mojgan Bethea MD REASON FOR CONSULTATION: Acute kidney injury. REASON FOR ADMISSION: Weakness. HISTORY OF PRESENT ILLNESS: This is an 83-year-old male with history of dementia, meningioma, seizure, glaucoma, type 2 diabetes, who came to the hospital with weakness and hypotension. The patient was seen by sent to the ER and was eventually transferred over here. The patient was very weak, tired. No chest pain or palpitation. No fever or chills. No nausea or vomiting reported. PAST MEDICAL HISTORY: Positive for dementia, meningioma, seizure, glaucoma, cataract, and type 2 diabetes. PAST SURGICAL HISTORY: Cardiac stents, hernia repair, and tonsillectomy. HOME MEDICATIONS: 1. Aspirin. 2. Losartan. 3. Atorvastatin. 4. Glipizide. 5. Plavix. 6. Keppra. 7. Dorzolamide. 8. Carvedilol. ALLERGIES: NO KNOWN DRUG ALLERGIES. SOCIAL HISTORY: No smoking, alcohol, or illicit drugs abuse. FAMILY HISTORY: No history of any kidney disease. REVIEW OF SYSTEMS: CONSTITUTIONAL: Negative for weight loss or gain, ability to conduct usual activities. SKIN: Negative for rash, itching. EYES: Negative for double vision, pain. ENT/MOUTH: Negative for nose bleeding, neck stiffness, pain, tenderness. CARDIOVASCULAR: Negative for palpitations, dyspnea on exertion, orthopnea. RESPIRATORY: Negative for shortness of breath, wheezing, cough, hemoptysis, fever or night sweats. GASTROINTESTINAL: Negative for poor appetite, abdominal pain, heartburn, nausea, vomiting, constipation, or diarrhea. GENITOURINARY: Negative for urgency, frequency, dysuria, nocturia. MUSCULOSKELETAL: Negative for pain, swelling. NEUROLOGIC/PSYCHIATRIC: Negative for anxiety, depression. ALLERGY/IMMUNOLOGIC: Negative for skin rash, bleeding tendency. PHYSICAL EXAMINATION: GENERAL: This is a well-built male, in no apparent distress. VITAL SIGNS: Temperature 97.6, pulse 83, respiratory rate 18, and blood pressure 99/65. HEENT: Atraumatic, normocephalic. Oral mucosa moist. NECK: Supple. CARDIOVASCULAR: S1 and S2 heard. Distant heart sounds. GASTROINTESTINAL: Abdomen is soft. MUSCULOSKELETAL: . DERMATOLOGIC: No skin rash. NEUROLOGIC: Alert and awake. PSYCHIATRIC: Mood and affect normal. LABORATORY DATA: Hemoglobin is 16.1. Potassium 4.2, BUN is 101, and creatinine is 4.5. ASSESSMENT AND PLAN: 1. Acute kidney injury on chronic kidney disease, stage 3. Avoid nephrotoxins. Continue hydration. 2. Hyponatremia. Continue hydration. 3. Acidosis. 4. Edema, controlled. 5. Hypoalbuminemia. 6. Lactic acidosis. 7. Renal lesion. We will check renal ultrasound. Avoid nephrotoxins. Continue hydration as tolerated. We will follow. Thank you for the consult. Job ID: [id number]
--- NOTE | 2019-04-05 16:45 | NM ---
HEPATOBILIARY SCAN: 04/05/19 HISTORY: Cholelithiasis, right upper quadrant pain. Nausea. RADIOPHARMACEUTICAL: 4.5 millicuries technetium 99m Mebrofenin injected intravenously. FINDINGS: The patient was pretreated with 1.7 micrograms of CCK-8 intravenously half an hour prior to the trace r injection. There is good tracer extraction of the liver with prompt excretion of the biliary tract and small bow el loops. No filling of the gallbladder after 90 minutes. Imaging was performed for an additional 30 minutes following the intravenous administration of 2 mg I V morphine. There is filling of the gallbladder on the morphine augmented images. IMPRESSION: 1. No evidence of cystic duct obstruction/acute cholecystitis. 2. Findings are consistent with chronic cholecystitis. POS: OFF
--- NOTE | 2019-04-05 16:47 | ULT ---
RENAL ULTRASOUND 04/05/19 HISTORY: Acute renal insufficiency. FINDINGS: The right kidney measures 8.6 cm in length without hydronephrosis. The left kidney is not visualized. There is solid appearing mass arising from the lateral aspect of the right mid kidney measuring 4 x 4 x 2.6 cm. The urinary bladder is unremarkable. Incidental note is made of ascites and a left pleural effusion. IMPRESSION: Solid appearing right renal mass suspicious for malignancy. Evaluation with contrast enhanced CT scan or MRI using the adrenal mass protocol is recommended. POS: OFF
[2019-04-05] MEDS: Sodium Chloride 0.9% 1,000 ML IV SCH (17:23)
--- NOTE | 2019-04-05 20:11 | PDOC.HOSPP ---
- Subjective Encounter Date: 04/05/19 Encounter Time: 10:20 Subjective: Pt seen for followup re: acute on chronic stage 4 renal failure. Pt lethargic, not answering questions, could not complete ROS. - Objective Vital Signs & Weight: Vital Signs (12 hours) Pulse Resp BP Pulse Ox 04/05/19 16:43 78 12 112/65 93 L Weight Weight 195 lb 7 oz I&O: 04/04/19 04/05/19 04/06/19 06:59 06:59 06:59 Intake Total 775 Balance 775 Result Diagrams: 04/05/19 02:13 04/05/19 02:13 Additional Labs: Labs and MARs reviewed by me Hospitalist ROS - Review of Systems ROS unobtainable: due to mental status - Medication Medications: Active Medications Generic Name Dose Route Start Last Admin Trade Name Freq PRN Reason Stop Dose Admin Aspirin 81 mg 04/05/19 09:00 04/05/19 08:44 Ecotrin PO 81 mg DAILY RHEA Administration Dorzolamide/Timolol 1 drop 04/04/19 21:00 04/05/19 08:46 Cosopt 2-0.5% Ophth Soln EA EYE 1 drop BID RHEA Administration Sodium Chloride 1,000 mls @ 50 mls/hr 04/04/19 18:45 04/05/19 17:23 Normal Saline 0.9% IV Not Given .Q20H RHEA Cefepime HCl 1 gm/ Sodium 100 mls @ 200 mls/hr 04/05/19 02:00 04/05/19 17:21 Chloride IVPB 100 mls 0200,1400 RHEA Administration Latanoprost 1 drop 04/04/19 21:00 04/04/19 22:39 Xalatan 0.005% Ophth Soln EA EYE 1 drop HS RHEA Administration Levetiracetam 500 mg 04/05/19 09:00 04/05/19 08:45 Keppra PO Not Given DAILY RHEA Lorazepam 0.5 mg 04/05/19 08:23 04/05/19 10:44 Ativan SLOW IVP 04/05/19 23:59 0.5 mg ONE PRN Administration Anxiety Sodium Chloride 10 ml 04/04/19 21:00 04/05/19 10:45 Flush - Normal Saline IVF Not Given Q12HR RHEA - Exam General Appearance: NAD Eye: anicteric sclera ENT: moist mucosa Neck: supple Heart: RRR Respiratory: CTAB Gastrointestinal: soft, non-tender, normal bowel sounds Musculoskeletal: no muscle wasting Psychiatric: lethargic Hosp A/P (1) Acute metabolic encephalopathy Code(s): G93.41 - METABOLIC ENCEPHALOPATHY Status: Acute (2) Acute worsening of stage 4 chronic kidney disease Code(s): N18.4 - CHRONIC KIDNEY DISEASE, STAGE 4 (SEVERE) Status: Acute (3) Chronic cholecystitis Code(s): K81.1 - CHRONIC CHOLECYSTITIS Status: Chronic (4) CAD (coronary artery disease) Code(s): I25.10 - ATHSCL HEART DISEASE OF [place] CORONARY ARTERY W/O ANG PCTRS Status: Chronic (5) Diabetes mellitus Code(s): E11.9 - TYPE 2 DIABETES MELLITUS WITHOUT COMPLICATIONS Status: Chronic (6) HTN (hypertension) Code(s): I10 - ESSENTIAL (PRIMARY) HYPERTENSION Status: Chronic (7) Meningioma Code(s): D32.9 - BENIGN NEOPLASM OF MENINGES, UNSPECIFIED Status: Chronic (8) Renal mass Code(s): N28.89 - OTHER SPECIFIED DISORDERS OF KIDNEY AND URETER Status: Chronic - Plan plan discussed w/ family, continue antibiotics Continue cefepime, follow blood cultures. Consult urology re: renal mass. Creatinine improved to 4.28 today. Continue keppra. HTN controlled.
[2019-04-05] MEDS: Latanoprost 0.005% Ophth Soln 2.5 ml Bottle EA EYE SCH (21:35)
[2019-04-06] MEDS: Cefepime 1 GM in Sodium Chloride 0.9% 100 ML IVPB SCH ×2 (02:10→14:44)
[2019-04-06] MEDS: Heparin 5,000 UNITS/ML VIAL SC SCH ×2 (09:29→21:34)
[2019-04-06 09:42] LABS: #Basophils 0.1 thou/uL (0.0-0.2); #Eosinphils 0.1 thou/uL (0.0-0.7); #Monocytes 0.9 thou/uL (0.11-0.59); #Neutrophils 7.1 thou/uL (1.40-6.50); %Basophils 0.8 % (0.0-1.0); %Eosinophils 1.4 % (0.0-10.0); %Lymphocytes 19.3 % (21.0-51.0); %Monocytes 9.1 % (0.0-10.0); %Neutrophils 69.4 % (42.0-75.0); Hemoglobin 16.2 g/dL (14.0-18.0); Mean Corpuscular HGB CONC 32.2 g/dL (32.0-36.0); Mean Corpuscular Hemoglobin 29.6 pg (27.0-31.0); Mean Corpuscular Volume 91.7 fL (78.0-98.0); Platelet Count 155 thou/uL (130-400); RBC Distribution Width 18.3 % (11.5-14.5); White Blood Cell (WBC) Count 10.3 thou/uL (4.8-10.8)
[2019-04-06 09:45] LABS: Anion Gap 16 mmol/L (10-20); BUN (Urea Nitrogen) 102 mg/dL (8.4-25.7); Calc. Creatinine Clearance 17 mL/min (70-130); Calcium 7.8 mg/dL (7.8-10.44); Carbon Dioxide 22 mmol/L (23-31); Chloride 99 mmol/L (98-107); Estimated GFR-MDRD 14; Glucose 172 mg/dL (83-110); Potassium 4.2 mmol/L (3.5-5.1); Sodium 133 mmol/L (136-145)
[2019-04-06 09:48] LABS: ALT (SGPT) 26 U/L (8-55); AST (SGOT) 26 U/L (5-34); Albumin 2.8 g/dL (3.4-4.8); Alkaline Phosphatase 128 U/L (40-110); Bilirubin, Direct 0.9 mg/dL (0.1-0.3); Bilirubin, Total 1.4 mg/dL (0.2-1.2); Protein, Total 5.6 g/dL (5.8-8.1)
[2019-04-06] MEDS: Aspirin 81 mg Enteric Coated Tablet PO SCH (10:02)
[2019-04-06] MEDS: levETIRAcetam 500 MG TAB PO SCH (10:02)
[2019-04-06] MEDS: DorzolamidE/Timolol 2%/0.5% Ophth Soln 10 ml Bottle EA EYE SCH ×2 (10:15→21:32)
--- NOTE | 2019-04-06 13:42 | PRG ---
DATE OF SERVICE: 04/06/2019 SUBJECTIVE: Patient was seen and examined at bedside and overnight events noted. Patient denies any shortness of breath or chest pain or palpitation. No history of nausea or vomiting or diarrhea or fever or chills or cramps. OBJECTIVE: GENERAL: This is a well-built male, very lethargic. VITAL SIGNS: Temperature 97.1, heart rate 70, respiratory rate 14, blood pressure 97/67. HEENT: Atraumatic, normocephalic. Oral mucosa is moist NECK: Supple. CARDIOVASCULAR: S1, S2 heard. Rate and rhythm regular. RESPIRATORY: Clear to auscultation. GASTROINTESTINAL: Abdomen is soft. MUSCULOSKELETAL: No tenderness. No edema. DERMATOLOGIC: No skin rash. NEUROLOGIC: Alert and awake and oriented X3. No focal neurologic deficits. Moving all the extremities. PSYCHIATRIC: Mood and affect normal. LABORATORY DATA: Potassium 4.2, BUN is 102, and creatinine is 4.1. ASSESSMENT AND PLAN: 1. Acute kidney injury on chronic kidney disease stage 4, stable labs. No acute indication for dialysis. 2. Lethargy with weakness. 3. Hyponatremia, stable. 4. Acidosis. 5. Edema. 6. Hypoalbuminemia. 7. Renal mass. Urology evaluation pending. We will continue to monitor renal function. No acute indication for dialysis. We will follow. Continue supportive care. Okay with stopping IV fluids for now. Job ID: [id number]
--- NOTE | 2019-04-06 14:02 | PDOC.HOSPP ---
- Subjective Encounter Date: 04/06/19 Encounter Time: 10:00 Subjective: Pt seen for followup re: acute metabolic encephalopathy. More alert today. Denies any abdominal pain. - Objective Vital Signs & Weight: Vital Signs (12 hours) Temp Pulse Pulse Resp BP BP BP 04/06/19 12:20 97.1 F L 70 14 97/67 04/06/19 10:36 76 106/64 101/66 04/06/19 08:03 97.1 F L 77 14 122/78 04/06/19 04:00 97.5 F L 80 16 96/61 Pulse Ox 04/06/19 12:20 94 L 04/06/19 10:36 04/06/19 08:03 95 04/06/19 04:00 95 Weight Weight 195 lb 7 oz I&O: 04/05/19 04/06/19 04/07/19 06:59 06:59 06:59 Intake Total 775 372 Balance 775 372 Result Diagrams: 04/06/19 09:07 04/06/19 09:07 Additional Labs: Labs and MARs reviewed by ma Hospitalist ROS - Review of Systems Constitutional: denies: fever, chills, sweats, weakness, malaise Cardiovascular: denies: chest pain, palpitations, orthopnea, paroxysmal noc. dyspnea, edema, light headedness Gastrointestinal: denies: nausea, vomiting, abdominal pain, diarrhea, constipation, melena, hematochezia - Medication Medications: Active Medications Generic Name Dose Route Start Last Admin Trade Name Freq PRN Reason Stop Dose Admin Aspirin 81 mg 04/05/19 09:00 04/06/19 10:02 Ecotrin PO Not Given DAILY RHEA Dorzolamide/Timolol 1 drop 04/04/19 21:00 04/06/19 10:15 Cosopt 2-0.5% Ophth Soln EA EYE 1 drop BID RHEA Administration Heparin Sodium (Porcine) 5,000 units 04/05/19 21:00 04/06/19 09:29 Heparin SC 5,000 units BID RHEA Administration Cefepime HCl 1 gm/ Sodium 100 mls @ 200 mls/hr 04/05/19 02:00 04/06/19 02:10 Chloride IVPB 100 mls 0200,1400 RHEA Administration Latanoprost 1 drop 04/04/19 21:00 04/05/19 21:35 Xalatan 0.005% Ophth Soln EA EYE 1 drop HS RHEA Administration Levetiracetam 500 mg 04/05/19 09:00 04/06/19 10:02 Keppra PO Not Given DAILY RHEA Sodium Chloride 10 ml 04/04/19 21:00 04/06/19 10:15 Flush - Normal Saline IVF 10 ml Q12HR RHEA Administration - Exam General - other findings: Obese Eye: anicteric sclera ENT: normocephalic atraumatic, moist mucosa Neck: supple, no thyromegaly, no lymphadenopathy Heart: RRR Respiratory: CTAB Gastrointestinal: soft, non-tender, normal bowel sounds Psychiatric: normal affect, normal behavior, oriented to person Hosp A/P (1) Acute metabolic encephalopathy Code(s): G93.41 - METABOLIC ENCEPHALOPATHY Status: Acute (2) Acute worsening of stage 4 chronic kidney disease Code(s): N18.4 - CHRONIC KIDNEY DISEASE, STAGE 4 (SEVERE) Status: Acute (3) Chronic cholecystitis Code(s): K81.1 - CHRONIC CHOLECYSTITIS Status: Chronic (4) CAD (coronary artery disease) Code(s): I25.10 - ATHSCL HEART DISEASE OF [place] CORONARY ARTERY W/O ANG PCTRS Status: Chronic (5) Diabetes mellitus Code(s): E11.9 - TYPE 2 DIABETES MELLITUS WITHOUT COMPLICATIONS Status: Chronic (6) HTN (hypertension) Code(s): I10 - ESSENTIAL (PRIMARY) HYPERTENSION Status: Chronic (7) Meningioma Code(s): D32.9 - BENIGN NEOPLASM OF MENINGES, UNSPECIFIED Status: Chronic (8) Renal mass Code(s): N28.89 - OTHER SPECIFIED DISORDERS OF KIDNEY AND URETER Status: Chronic - Plan Metabolic encephalopathy improving. Continue cefepime, follow blood cultures. Urology consult pending. Creatinine improved to 4.18 today. Continue keppra. HTN controlled. Discussed with surgical service. Pt has no abdo pain and nontender on exam, they recommended conservative management for chronic cholecystitis.
[2019-04-06] MEDS: Senokot S 8.6-50 MG TAB PO PRN (14:56)
--- NOTE | 2019-04-06 15:12 | CON ---
DATE OF CONSULTATION: 04/06/2019 REASON FOR CONSULTATION: 1. Right-sided renal mass. 2. Acute kidney injury. 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 The patient has a history of dementia, meningioma, seizure, glaucoma, and type 2 diabetes. He is cared for by his , who is a retired RN and home health at home. The patient was brought in after being noticed to be weak and having hypotension. The patient has apparently lost his thirst as a symptom. He does have a history of recurrent seizures in the past, but has been taken off his antiseizure medication due to somnolence. The patient was brought to the Emergency Department, eventually transferred and admitted for treatment and therapy. The patient has a blood urea nitrogen in excess of 100 and a creatinine in excess of 4. He has been relatively dehydrated, but has edema of the lower extremities as well. He does have a history of cardiac disease and has two cardiac stents placed in 2013 and in 2018. PAST MEDICAL HISTORY: 1. Dementia. 2. History of recurrent seizure. 3. Meningioma. 4. Glaucoma. 5. Cataract. 6. Type 2 diabetes. 7. Coronary artery disease, status post stents. PAST SURGICAL HISTORY: Includes coronary artery stents, hernia repair, and tonsillectomy. MEDICATIONS: Home medication list includes: 1. Keppra, which he is not currently taking. 2. Aspirin. 3. Losartan. 4. Atorvastatin. 5. Glipizide. 6. Plavix. 7. Dorzolamide. 8. Carvedilol. PHYSICAL EXAMINATION: VITAL SIGNS: Temperature is 97.1. The patient has been afebrile throughout the admission, which began on 04/04/2019. The patient's current pulse rate is 70, respiratory rate 14, O2 saturation on room air is 94%, and blood pressure is 97/67. GENERAL: This is a solemn white male, who predominantly keeps his eyes closed. Does occasionally squint through the left eye. HEAD, EYES, EARS, NOSE, AND THROAT: Extraocular movements are hard to examine as he keeps his eyelids closed. Sclera as what I can see of the left eye appears anicteric. The patient is able to breathe without difficulty. Oropharynx was not examined. LUNGS: Clear to auscultation bilaterally. The patient has relatively shallow breathing. CARDIAC: Regular rate and rhythm. There were no chest scars present. There is no evidence of pacemaker. ABDOMEN: Soft and nontender. There are no palpable masses. GENITOURINARY: Phallus appears to been circumcised, but has overall uncircumcised appearance due to the mons pubis fat distribution. Smegma beneath urethral meatus appears adequate. Testes present bilaterally. Scrotum is smooth, anodular, and nontender. Digital rectal examination is performed, finds a 40 g prostate, which is smooth, anodular, and nontender also. EXTREMITIES: Examination finds 2+ pitting edema of the bilateral lower extremities. There is bilateral lower extremity swelling consistent with generalized edema. LABORATORY STUDIES: The patient's white count is down to 10.3 from 11 on admission, lymphocytes are 19.3, and neutrophil ANC is 7.1. Serum chemistries show a current creatinine of 4.18 with blood urea nitrogen of 102. Potassium is 4.2, total bilirubin is 1.4 with a direct bilirubin of 0.9, alkaline phosphatase is elevated at 1.28, and serum protein is low at 5.6 with albumin of 2.8. Troponins were moderately elevated at 0.154 and 0.158, decreased from 0.196 at admission on 04/04. CT scan of the abdomen and pelvis performed on 03/12/2019 shows a 4.2 cm exophytic right-sided posteriorly located renal cyst. This actually appears to be two cysts to my examination about 2.2 cm or so in diameter. Overall, there is a 4.2 x 2.2 cm in total exophytic lesions. A renal ultrasound on 03/12/2019 was performed as well as a recent renal ultrasound on 04/05/2019. These studies confirm the exophytic characteristic of this lesion and suggests that this could be a renal cell cancer. The patient's lesions are in a size range, which might be suitable for observation, particularly given the patient's multisystem dysfunction. ASSESSMENT AND PLAN: 1. Right-sided exophytic renal cyst x2 or possibly one larger lesion. These lesions are suitable for observation based on my examination and the patient's current life expectancy with his multisystem dysfunction. The patient's multisystem disorders include cognitive secondary to seizure, renal dysfunction, possible cardiac dysfunction, and hepatic dysfunction. At present time, I think simple observation of these lesions is adequate. If the patient was to progress to needing an intervention, consideration of a CT or ultrasound guided renal radiofrequency ablation of the lesions or cryo ablation of lesions could be considered. At the present time, I think his renal function is too poor to consider any type of intervention as a failed intervention could lead to loss of the kidney in total, which would require then hemodialysis. I think his life expectancy would be negatively influenced by any type of intervention at this point. For now, we will plan on observation. He may follow up in my office at [facility] for further followup. 2. Male health issues. Digital rectal examination has no abnormal findings. Based on the patient's age, he should not undergo PSA testing in the future as his life expectancy is less than 10 years and there are no current obstructive features of significance. 3. Urge incontinence, currently managed by incontinence undergarments, which is most likely due to sphincteric dysfunction and the patient's central nervous system disorder in combination. Indwelling catheter is not appropriate for this patient. 4. Renal insufficiency. This appears to be a primary medical disorder. Nephrotoxic agents should be avoided. TIME SPENT: Over 70 minutes initial consultation evaluation, assessment time spent in assessment of this patient today. Job ID: [id number]
[2019-04-06] MEDS: Latanoprost 0.005% Ophth Soln 2.5 ml Bottle EA EYE SCH (21:36)
[2019-04-07] MEDS: Cefepime 1 GM in Sodium Chloride 0.9% 100 ML IVPB SCH ×2 (02:56→16:41)
[2019-04-07 05:59] LABS: Anion Gap 14 mmol/L (10-20); BUN (Urea Nitrogen) 101 mg/dL (8.4-25.7); Calc. Creatinine Clearance 19 mL/min (70-130); Calcium 7.6 mg/dL (7.8-10.44); Carbon Dioxide 17 mmol/L (23-31); Chloride 102 mmol/L (98-107); Estimated GFR-MDRD 15; Glucose 179 mg/dL (83-110); Potassium 4.1 mmol/L (3.5-5.1); Sodium 129 mmol/L (136-145)
[2019-04-07 06:02] LABS: #Basophils 0.1 thou/uL (0.0-0.2); #Eosinphils 0.1 thou/uL (0.0-0.7); #Lymphocytes 1.8 thou/uL (1.20-3.40); #Monocytes 1.1 thou/uL (0.11-0.59); #Neutrophils 6.3 thou/uL (1.40-6.50); %Basophils 0.7 % (0.0-1.0); %Eosinophils 1.3 % (0.0-10.0); %Lymphocytes 19.3 % (21.0-51.0); %Monocytes 11.3 % (0.0-10.0); %Neutrophils 67.5 % (42.0-75.0); Elliptocytes SLIGHT = 2-5 cells (100X) (0-1/hpf); Hemoglobin 14.1 g/dL (14.0-18.0); MDiff Complete? YES; Mean Corpuscular HGB CONC 33.4 g/dL (32.0-36.0); Mean Corpuscular Hemoglobin 30.1 pg (27.0-31.0); Mean Corpuscular Volume 90.2 fL (78.0-98.0); Mean Platelet Volume 12.4 fL (7.4-10.4); Platelet Count 127 thou/uL (130-400); Platelet Morphology Comment Appears Decreased; RBC Distribution Width 17.6 % (11.5-14.5); Red Blood Cell (RBC) Count 4.69 mill/uL (4.70-6.10); White Blood Cell (WBC) Count 9.3 thou/uL (4.8-10.8)
[2019-04-07] MEDS: Aspirin 81 mg Enteric Coated Tablet PO SCH (07:59)
[2019-04-07] MEDS: levETIRAcetam 500 MG TAB PO SCH (07:59)
[2019-04-07] MEDS: Heparin 5,000 UNITS/ML VIAL SC SCH ×2 (07:59→20:26)
[2019-04-07] MEDS: DorzolamidE/Timolol 2%/0.5% Ophth Soln 10 ml Bottle EA EYE SCH ×2 (08:00→20:18)
--- NOTE | 2019-04-07 12:07 | PRG ---
DATE OF SERVICE: 04/07/2019 SUBJECTIVE: This is an 83-year-old gentleman, being seen for acute kidney injury. The patient denied nausea, vomiting, or chest pain. OBJECTIVE: CONSTITUTIONAL: The patient is awake and alert. VITAL SIGNS: Pulse 56, breathing 18, blood pressure 109/56. GENERAL APPEARANCE AND MENTAL STATUS: Fair. HEAD/NECK: Normocephalic. Atraumatic. EYES: EOMI. No deformity. EARS: Clear. No ulcers. NOSE: Intact. No lesions. MOUTH: Clear. No discharge. THROAT: Clear. No exudate. LUNGS: Clear. No crackles. CARDIAC: S1, S2. No rub. ABDOMEN: Benign. Bowel sounds positive. GENITALIA/RECTUM: [place] absent. BACK/EXTREMITIES: Edema 0+. NEUROLOGICAL: Alert and motor intact. SKIN: LYMPHATICS: LABORATORY DATA: Reviewed. ASSESSMENT AND PLAN: 1. Chronic kidney disease stage 4, stable . 2. Anemia, stable. 3. Medication based on GFR, appropriate. No indication for dialysis. 4. recommend gentle hydration. Job ID: [id number]
--- NOTE | 2019-04-07 19:20 | PDOC.HOSPP ---
- Subjective Encounter Date: 04/07/19 Encounter Time: 09:40 Subjective: Pt seen for followup re: acute metabolic encephalopathy. Awake and alert, no complaints. - Objective Vital Signs & Weight: Vital Signs (12 hours) Temp Pulse Resp BP Pulse Ox 04/07/19 08:00 95 04/07/19 07:58 97.5 F L 56 L 18 109/56 L 95 Weight Weight 195 lb 7 oz I&O: 04/06/19 04/07/19 04/08/19 06:59 06:59 06:59 Intake Total 372 720 Balance 372 720 Result Diagrams: 04/07/19 05:22 04/07/19 05:22 Additional Labs: Labs and MARs reviewed by mo Hospitalist ROS - Review of Systems Respiratory: denies: cough, shortness of breath, hemoptysis, SOB with excertion , pleuritic pain, wheezing Genitourinary: denies: dysuria, frequency, incontinence, hematuria, retention - Medication Medications: Active Medications Generic Name Dose Route Start Last Admin Trade Name Freq PRN Reason Stop Dose Admin Aspirin 81 mg 04/05/19 09:00 04/07/19 07:59 Ecotrin PO 81 mg DAILY RHEA Administration Dorzolamide/Timolol 1 drop 04/04/19 21:00 04/07/19 08:00 Cosopt 2-0.5% Ophth Soln EA EYE 1 drop BID RHEA Administration Heparin Sodium (Porcine) 5,000 units 04/05/19 21:00 04/07/19 07:59 Heparin SC 5,000 units BID RHEA Administration Latanoprost 1 drop 04/04/19 21:00 04/06/19 21:36 Xalatan 0.005% Ophth Soln EA EYE 1 drop HS RHEA Administration Levetiracetam 500 mg 04/05/19 09:00 04/07/19 07:59 Keppra PO 500 mg DAILY RHEA Administration Senna/Docusate Sodium 2 tab 04/04/19 18:39 04/06/19 14:56 Senokot S PO 2 tab BIDPRN PRN Administration Constipation Sodium Chloride 10 ml 04/04/19 21:00 04/07/19 07:59 Flush - Normal Saline IVF 10 ml Q12HR RHEA Administration - Exam General Appearance: awake alert General - other findings: Obese Eye: anicteric sclera ENT: normocephalic atraumatic Neck: supple Heart: RRR, no gallops Respiratory: CTAB Gastrointestinal: soft, non-tender Extremities: 2+ LE edema Psychiatric: normal affect, normal behavior Hosp A/P (1) Acute metabolic encephalopathy Code(s): G93.41 - METABOLIC ENCEPHALOPATHY Status: Acute (2) Acute worsening of stage 4 chronic kidney disease Code(s): N18.4 - CHRONIC KIDNEY DISEASE, STAGE 4 (SEVERE) Status: Acute (3) Chronic cholecystitis Code(s): K81.1 - CHRONIC CHOLECYSTITIS Status: Chronic (4) CAD (coronary artery disease) Code(s): I25.10 - ATHSCL HEART DISEASE OF [place] CORONARY ARTERY W/O ANG PCTRS Status: Chronic (5) Diabetes mellitus Code(s): E11.9 - TYPE 2 DIABETES MELLITUS WITHOUT COMPLICATIONS Status: Chronic (6) HTN (hypertension) Code(s): I10 - ESSENTIAL (PRIMARY) HYPERTENSION Status: Chronic (7) Meningioma Code(s): D32.9 - BENIGN NEOPLASM OF MENINGES, UNSPECIFIED Status: Chronic (8) Renal mass Code(s): N28.89 - OTHER SPECIFIED DISORDERS OF KIDNEY AND URETER Status: Chronic - Plan plan discussed w/ family, PT/OT Metabolic encephalopathy improving. Discontinue cefepime, follow blood cultures. Urology consult appreciated. Continue keppra. HTN controlled. Ambulate patient.
[2019-04-07] MEDS ORDERED: Sodium Chloride 0.9% 1,000 ML IV SCH (19:30)
[2019-04-07] MEDS: Latanoprost 0.005% Ophth Soln 2.5 ml Bottle EA EYE SCH (20:17)
[2019-04-07] MEDS: Sodium Chloride 0.9% 1,000 ML IV SCH (20:23)
[2019-04-07] MEDS: Senokot S 8.6-50 MG TAB PO PRN (20:31)
[2019-04-08 05:50] LABS: #Basophils 0.1 thou/uL (0.0-0.2); #Eosinphils 0.2 thou/uL (0.0-0.7); #Lymphocytes 1.7 thou/uL (1.20-3.40); %Basophils 0.8 % (0.0-1.0); %Eosinophils 1.9 % (0.0-10.0); %Lymphocytes 18.9 % (21.0-51.0); %Monocytes 11.1 % (0.0-10.0); %Neutrophils 67.4 % (42.0-75.0); Hemoglobin 14.3 g/dL (14.0-18.0); Mean Corpuscular Hemoglobin 29.6 pg (27.0-31.0); Mean Corpuscular Volume 92.4 fL (78.0-98.0); Mean Platelet Volume 13.6 fL (7.4-10.4); Platelet Count 122 thou/uL (130-400); RBC Distribution Width 17.7 % (11.5-14.5); Red Blood Cell (RBC) Count 4.84 mill/uL (4.70-6.10)
[2019-04-08 06:02] LABS: Anion Gap 16 mmol/L (10-20); BUN (Urea Nitrogen) 106 mg/dL (8.4-25.7); Calc. Creatinine Clearance 20 mL/min (70-130); Carbon Dioxide 22 mmol/L (23-31); Chloride 99 mmol/L (98-107); Estimated GFR-MDRD 17; Glucose 193 mg/dL (83-110); Potassium 3.8 mmol/L (3.5-5.1); Sodium 133 mmol/L (136-145)
--- NOTE | 2019-04-08 08:22 | NM ---
MUGA SCAN: HISTORY: Poor echo windows. Hypotension RADIOPHARMACEUTICAL: 27.3 mCi technetium 99m labeled RBCs injected intravenously. Comparison: None FINDINGS: The left ventricular ejection fraction %.Wall motion is normal. IMPRESSION: LVEF is 54%.
[2019-04-08] MEDS: Heparin 5,000 UNITS/ML VIAL SC SCH ×2 (09:05→20:51)
[2019-04-08] MEDS: DorzolamidE/Timolol 2%/0.5% Ophth Soln 10 ml Bottle EA EYE SCH ×2 (09:06→20:50)
[2019-04-08] MEDS: Aspirin 81 mg Enteric Coated Tablet PO SCH (10:45)
[2019-04-08] MEDS: levETIRAcetam 500 MG TAB PO SCH (10:45)
[2019-04-08] MEDS ORDERED: Polyethylene Glycol 3350 17 GM Packet PO SCH (12:15)
--- NOTE | 2019-04-08 14:46 | PQF ---
CLINICAL DOCUMENTATION IMPROVEMENT CLARIFICATION FORM: ICD-10 Updated PLEASE DO AN ADDENDUM TO THE PROGRESS NOTE WITH ANY DOCUMENTATION UPDATES OR ADDITIONS AND CARRY THROUGH TO DC SUMMARY. THANK YOU. DATE: 04/08/2009 ATTN: Dr. Washington Please exercise your independent, professional judgment in responding to the clarification form. Clinical indicators are provided on the bottom of this form for your review Please check appropriate box(s) to clarify if the following diagnosis has been ruled in or ruled out: SEPSIS [ ] Ruled in diagnosis [ ] Continue to treat [ ] Resolved [ x ] Ruled out diagnosis [ ] Cannot rule out diagnosis [ ] Other diagnosis [ ] Unable to determine In addition, please specify: Present on Admission (POA): [ ] Yes [ ] No [ ] Unable to determine For continuity of documentation, please document condition throughout progress notes and discharge summary. Thank You. CLINICAL INDICATORS - SIGNS / SYMPTOMS / LABS / RESULTS AND LOCATION IN MR ER RECORD 04/04: Primary diagnosis: sepsis H&P 04/04: ..hypotensive at the clinic today. His blood pressure was noted to be in the low 60s. LAB: Lactic acid 2.4 Assessment and Plan: Hypotension, possibly sepsis. PN 04/07: Acute metabolic encephalopathy Acute worsening of stage 4 CKD Chronic cholecystitis RISKS: H&P 04/04: 83 yo hx of nonspecific dementia; hx brain meningioma; Seizures; Type 2 DM; CKD 3; Asthma. TREATMENT: PN 04/07: Discontinue cefepime, follow blood cultures. MAR: 04/07 NS IV 50 mls/hr Thank you, Mikayla (This form is maintained as a part of the permanent medical record) 2014 [employer] [place]. All Rights Reserved Mikayla Russell RN, BSN [email or web address] Office: [phone] [facility] CENTERSuk[facility]inder
[2019-04-08] MEDS: Sodium Chloride 0.9% 1,000 ML IV SCH (15:45)
[2019-04-08] MEDS ORDERED: Ondansetron PF 4 MG/2 ML Vial SLOW IVP PRN (17:21)
[2019-04-08] MEDS ORDERED: Bisacodyl 10 MG SUPP PR SCH (17:30)
--- NOTE | 2019-04-08 18:01 | PRG ---
DATE OF SERVICE: 04/08/2019 SUBJECTIVE: An 83-year-old gentleman being seen for acute kidney injury. The patient denies any nausea, vomiting, or chest pain. OBJECTIVE: GENERAL: The patient is awake and alert. VITAL SIGNS: , breathing 16, and blood pressure 115/61. GENERAL APPEARANCE AND MENTAL STATUS: Fair. HEAD/NECK: Normocephalic. Atraumatic. EYES: EOMI. No deformity. EARS: Clear. No ulcers. NOSE: Intact. No lesions. MOUTH: Clear. No discharge. THROAT: Clear. No exudate. LUNGS: Clear. No crackles. CARDIAC: S1, S2. No rub. ABDOMEN: Benign. Bowel sounds positive. GENITALIA/RECTUM: Merida absent. BACK/EXTREMITIES: Edema 0+. NEUROLOGICAL: Alert and motor intact. SKIN: LYMPHATICS: LABORATORY DATA: Reviewed. ASSESSMENT AND PLAN: 1. Acute kidney injury, improving. 2. Hypertension, stable. 3. Anemia, stable. 4. Medication based on GFR appropriate. No indication for dialysis. The patient has chronic kidney disease, stage 4. Job ID: [id number]
--- NOTE | 2019-04-08 18:46 | PDOC.HOSPP ---
- Subjective Encounter Date: 04/08/19 Encounter Time: 09:00 Subjective: Pt seen for followup re: acute metabolic encephalopathy. Feels well today. - Objective Vital Signs & Weight: Vital Signs (12 hours) Temp Pulse Resp BP Pulse Ox 04/08/19 08:00 95 04/08/19 07:43 97.5 F L 53 L 20 103/65 95 Weight Weight 195 lb 7 oz I&O: 04/07/19 04/08/19 04/09/19 06:59 06:59 06:59 Intake Total 1620 120 Balance 1620 120 Result Diagrams: 04/08/19 05:11 04/08/19 05:11 Additional Labs: Labs and MARs reviewed by me Hospitalist ROS - Review of Systems Gastrointestinal: reports: constipation. denies: nausea, vomiting, abdominal pain, diarrhea, melena, hematochezia Genitourinary: denies: dysuria, frequency, incontinence, hematuria, retention - Medication Medications: Active Medications Generic Name Dose Route Start Last Admin Trade Name Freq PRN Reason Stop Dose Admin Aspirin 81 mg 04/05/19 09:00 04/08/19 10:45 Ecotrin PO 81 mg DAILY RHEA Administration Bisacodyl 10 mg 04/08/19 17:30 04/08/19 17:56 Dulcolax MS 04/08/19 19:30 10 mg NOW RHEA Administration Dorzolamide/Timolol 1 drop 04/04/19 21:00 04/08/19 09:06 Cosopt 2-0.5% Ophth Soln EA EYE 1 drop BID RHEA Administration Heparin Sodium (Porcine) 5,000 units 04/05/19 21:00 04/08/19 09:05 Heparin SC 5,000 units BID RHEA Administration Sodium Chloride 1,000 mls @ 50 mls/hr 04/07/19 19:30 04/08/19 15:45 Normal Saline 0.9% IV 1,000 mls .Q20H RHEA Administration Latanoprost 1 drop 04/04/19 21:00 04/07/19 20:17 Xalatan 0.005% Ophth Soln EA EYE 1 drop HS RHEA Administration Levetiracetam 500 mg 04/05/19 09:00 04/08/19 10:45 Keppra PO 500 mg DAILY RHEA Administration Senna/Docusate Sodium 2 tab 04/04/19 18:39 04/07/19 20:31 Senokot S PO 2 tab BIDPRN PRN Administration Constipation Sodium Chloride 10 ml 04/04/19 21:00 04/08/19 09:06 Flush - Normal Saline IVF Not Given Q12HR RHEA - Exam General - other findings: Obese Eye: anicteric sclera ENT: no oropharyngeal lesions Neck: supple Heart: RRR Respiratory: CTAB Gastrointestinal: soft, non-tender Psychiatric: normal affect, normal behavior Hosp A/P (1) Acute metabolic encephalopathy Code(s): G93.41 - METABOLIC ENCEPHALOPATHY Status: Acute (2) Acute worsening of stage 4 chronic kidney disease Code(s): N18.4 - CHRONIC KIDNEY DISEASE, STAGE 4 (SEVERE) Status: Resolved (3) Chronic cholecystitis Code(s): K81.1 - CHRONIC CHOLECYSTITIS Status: Chronic (4) CAD (coronary artery disease) Code(s): I25.10 - ATHSCL HEART DISEASE OF [place] CORONARY ARTERY W/O ANG PCTRS Status: Chronic (5) Diabetes mellitus Code(s): E11.9 - TYPE 2 DIABETES MELLITUS WITHOUT COMPLICATIONS Status: Chronic (6) HTN (hypertension) Code(s): I10 - ESSENTIAL (PRIMARY) HYPERTENSION Status: Chronic (7) Meningioma Code(s): D32.9 - BENIGN NEOPLASM OF MENINGES, UNSPECIFIED Status: Chronic (8) Renal mass Code(s): N28.89 - OTHER SPECIFIED DISORDERS OF KIDNEY AND URETER Status: Chronic - Plan Metabolic encephalopathy improved. Pt seen by urology re: renal mass. Continue keppra. HTN controlled. Hyponatremia stable. CKD stage 4 stable. Dispo: SNU vs Inpt Rehab
[2019-04-08] MEDS: Latanoprost 0.005% Ophth Soln 2.5 ml Bottle EA EYE SCH (20:51)
[2019-04-09 05:59] LABS: Anion Gap 19 mmol/L (10-20); BUN (Urea Nitrogen) 100 mg/dL (8.4-25.7); Calc. Creatinine Clearance 22 mL/min (70-130); Calcium 7.5 mg/dL (7.8-10.44); Carbon Dioxide 15 mmol/L (23-31); Chloride 102 mmol/L (98-107); Estimated GFR-MDRD 19; Glucose 284 mg/dL (83-110); Potassium 4.3 mmol/L (3.5-5.1); Sodium 132 mmol/L (136-145)
[2019-04-09 06:48] LABS: #Lymphocytes 1.3 thou/uL (1.20-3.40); #Monocytes 0.8 thou/uL (0.11-0.59); #Neutrophils 8.9 thou/uL (1.40-6.50); %Basophils 0.4 % (0.0-1.0); %Eosinophils 0.4 % (0.0-10.0); %Lymphocytes 11.4 % (21.0-51.0); %Monocytes 7.3 % (0.0-10.0); %Neutrophils 80.4 % (42.0-75.0); Hemoglobin 14.5 g/dL (14.0-18.0); Mean Corpuscular HGB CONC 33.3 g/dL (32.0-36.0); Mean Corpuscular Hemoglobin 30.2 pg (27.0-31.0); Mean Corpuscular Volume 90.7 fL (78.0-98.0); Mean Platelet Volume 11.6 fL (7.4-10.4); Platelet Count 136 thou/uL (130-400); RBC Distribution Width 17.6 % (11.5-14.5); Red Blood Cell (RBC) Count 4.81 mill/uL (4.70-6.10)
[2019-04-09] MEDS: Aspirin 81 mg Enteric Coated Tablet PO SCH (09:12)
[2019-04-09] MEDS: levETIRAcetam 500 MG TAB PO SCH ×2 (09:12→10:19)
[2019-04-09] MEDS: Heparin 5,000 UNITS/ML VIAL SC SCH ×2 (09:13→20:40)
[2019-04-09] MEDS: DorzolamidE/Timolol 2%/0.5% Ophth Soln 10 ml Bottle EA EYE SCH ×2 (09:14→20:42)
[2019-04-09] MEDS: Polyethylene Glycol 3350 17 GM Packet PO SCH (09:14)
[2019-04-09] MEDS: Sodium Chloride 0.9% 1,000 ML IV SCH (10:17)
--- NOTE | 2019-04-09 11:17 | PRG ---
DATE OF SERVICE: 04/09/2019 SUBJECTIVE: This is an 83-year-old male being seen for acute kidney injury. The patient denies nausea, vomiting, or chest pain. OBJECTIVE: CONSTITUTIONAL: The patient is awake and alert. VITAL SIGNS: Afebrile, pulse 48, breathing 16, and blood pressure 120/88. GENERAL APPEARANCE AND MENTAL STATUS: Fair. HEAD/NECK: Normocephalic. Atraumatic. EYES: EOMI. No deformity. EARS: Clear. No ulcers. NOSE: Intact. No lesions. MOUTH: Clear. No discharge. THROAT: Clear. No exudate. LUNGS: Clear. No crackles. CARDIAC: S1, S2. No rub. ABDOMEN: Benign. Bowel sounds positive. GENITALIA/RECTUM: Merida absent. BACK/EXTREMITIES: Edema 0+. NEUROLOGICAL: Alert and motor intact. SKIN: LYMPHATICS: LABORATORY DATA: Reviewed. ASSESSMENT AND PLAN: 1. Stage 4 chronic kidney disease, stable. 2. Acute kidney injury, stable. 3. Hypertension, stable. 4. Anemia, stable. No indication for dialysis. Job ID: [id number]
--- NOTE | 2019-04-09 19:08 | PDOC.HOSPP ---
- Subjective Encounter Date: 04/09/19 Encounter Time: : Subjective: Pt seden for followup re: acute metabolic encephalopathy. Feels better today, no complaints. - Objective Vital Signs & Weight: Vital Signs (12 hours) Temp Pulse Resp BP Pulse Ox 04/09/19 07:37 97.6 F 48 L 18 111/66 94 L Weight Weight 195 lb 7 oz I&O: 04/08/19 04/09/19 04/10/19 06:59 06:59 06:59 Intake Total 1620 2080 240 Balance 1620 2080 240 Result Diagrams: 04/09/19 06:13 04/09/19 05:33 Additional Labs: Labs and MARs reviewed by pa Hospitalist ROS - Review of Systems Musculoskeletal: denies: neck pain, shoulder pain, arm pain, back pain, hand pain, leg pain, foot pain Skin: denies: rash, lesions, marie, bruising - Medication Medications: Active Medications Generic Name Dose Route Start Last Admin Trade Name Freq PRN Reason Stop Dose Admin Aspirin 81 mg 04/05/19 09:00 04/09/19 09:12 Ecotrin PO 81 mg DAILY RHEA Administration Dorzolamide/Timolol 1 drop 04/04/19 21:00 04/09/19 09:14 Cosopt 2-0.5% Ophth Soln EA EYE 1 drop BID RHEA Administration Heparin Sodium (Porcine) 5,000 units 04/05/19 21:00 04/09/19 09:13 Heparin SC 5,000 units BID RHEA Administration Sodium Chloride 1,000 mls @ 50 mls/hr 04/07/19 19:30 04/09/19 10:17 Normal Saline 0.9% IV 1,000 mls .Q20H RHEA Administration Latanoprost 1 drop 04/04/19 21:00 04/08/19 20:51 Xalatan 0.005% Ophth Soln EA EYE 1 drop HS RHEA Administration Levetiracetam 500 mg 04/05/19 09:00 04/09/19 10:19 Keppra PO 500 mg DAILY RHEA Administration Polyethylene Glycol 17 gm 04/09/19 09:00 04/09/19 09:14 Miralax PO 17 gm DAILY RHEA Administration Senna/Docusate Sodium 2 tab 04/04/19 18:39 04/07/19 20:31 Senokot S PO 2 tab BIDPRN PRN Administration Constipation Sodium Chloride 10 ml 04/04/19 21:00 04/09/19 09:15 Flush - Normal Saline IVF 10 ml Q12HR RHEA Administration - Exam General - other findings: Obesity ENT: normocephalic atraumatic Neck: no JVD, no thyromegaly Heart: RRR Respiratory: CTAB Gastrointestinal: soft, no hepatomegaly Skin: no rashes Psychiatric: normal affect Hosp A/P (1) Acute metabolic encephalopathy Code(s): G93.41 - METABOLIC ENCEPHALOPATHY Status: Acute (2) Chronic cholecystitis Code(s): K81.1 - CHRONIC CHOLECYSTITIS Status: Chronic (3) CAD (coronary artery disease) Code(s): I25.10 - ATHSCL HEART DISEASE OF [place] CORONARY ARTERY W/O ANG PCTRS Status: Chronic (4) Diabetes mellitus Code(s): E11.9 - TYPE 2 DIABETES MELLITUS WITHOUT COMPLICATIONS Status: Chronic (5) HTN (hypertension) Code(s): I10 - ESSENTIAL (PRIMARY) HYPERTENSION Status: Chronic (6) Meningioma Code(s): D32.9 - BENIGN NEOPLASM OF MENINGES, UNSPECIFIED Status: Chronic (7) Renal mass Code(s): N28.89 - OTHER SPECIFIED DISORDERS OF KIDNEY AND URETER Status: Chronic (8) Acute worsening of stage 4 chronic kidney disease Code(s): N18.4 - CHRONIC KIDNEY DISEASE, STAGE 4 (SEVERE) Status: Resolved - Plan Continue keppra. HTN controlled. Hyponatremia stable, sodium 132 today. CKD stage 4 stable. Dispo: Case management working on SNU vs Inpt Rehab
[2019-04-09] MEDS: Latanoprost 0.005% Ophth Soln 2.5 ml Bottle EA EYE SCH (20:42)
[2019-04-10] MEDS: Sodium Chloride 0.9% 1,000 ML IV SCH (04:34)
[2019-04-10 07:44] VITALS: BP 120/69; TEMP 97.2
[2019-04-10] MEDS: Aspirin 81 mg Enteric Coated Tablet PO SCH (09:13)
[2019-04-10] MEDS: DorzolamidE/Timolol 2%/0.5% Ophth Soln 10 ml Bottle EA EYE SCH (09:14)
[2019-04-10] MEDS: Polyethylene Glycol 3350 17 GM Packet PO SCH (09:15)
[2019-04-10] MEDS ORDERED: levETIRAcetam 500 MG TAB PO SCH (09:45)
[2019-04-10] MEDS: Heparin 5,000 UNITS/ML VIAL SC SCH (09:50)
[2019-04-10] MEDS: levETIRAcetam 500 MG TAB PO SCH (12:03)
--- NOTE | 2019-04-10 13:37 | PRG ---
DATE OF SERVICE: 04/10/2019 SUBJECTIVE: This is an 83-year-old gentleman, being seen for acute kidney injury. The patient denied nausea, vomiting, or chest pain. OBJECTIVE: CONSTITUTIONAL: The patient is awake and alert. VITAL SIGNS: Afebrile, pulse 86, breathing 16, and blood pressure 120/69. GENERAL APPEARANCE AND MENTAL STATUS: Fair. HEAD/NECK: Normocephalic. Atraumatic. EYES: EOMI. No deformity. EARS: Clear. No ulcers. NOSE: Intact. No lesions. MOUTH: Clear. No discharge. THROAT: Clear. No exudate. LUNGS: Clear. No crackles. CARDIAC: S1, S2. No rub. ABDOMEN: Benign. Bowel sounds positive. GENITALIA/RECTUM: Merida absent. BACK/EXTREMITIES: Edema 0+. NEUROLOGICAL: Alert and motor intact. SKIN: LYMPHATICS: LABORATORY DATA: Reviewed. ASSESSMENT AND PLAN: 1. Stage 4 chronic kidney disease, stable. 2. Acute kidney injury, stable. 3. Hypertension, stable. 4. Metabolic acidosis, stable. 5. Medication based on GFR appropriate. Job ID: [id number]
--- NOTE | 2019-04-10 19:58 | DIS ---
DATE OF ADMISSION: 04/04/2019 DATE OF DISCHARGE: 04/10/2019 PRIMARY CARE PROVIDER: Prachi Estevez. DISCHARGE DIAGNOSES: 1. Acute metabolic encephalopathy. 2. Acute metabolic encephalopathy secondary to acute on chronic stage 4 renal failure. 3. Chronic cholecystitis. 4. Renal mass. 5. Hyponatremia. 6. Physical deconditioning. CONDITION OF PATIENT ON THE DAY OF DISCHARGE: Stable. I assessed Mr. Palmer on the day of discharge. He denies any chest pain or shortness of breath. Vital signs are stable. S1 and S2 are heard, regular. Lungs are clear to auscultation bilaterally. DISCHARGE MEDICATIONS: 1. Atorvastatin 40 mg at bedtime. 2. Coreg 6.25 mg 2 times a day. 3. Plavix 75 mg daily. 4. Dorzolamide eye drops. 5. Latanoprost eye drops. 6. Glipizide 5 mg daily. 7. Aspirin 81 mg daily. 8. Keppra 250 mg daily. 9. Senokot two tablets 2 times a day as needed. CONSULTATIONS DURING THIS HOSPITALIZATION: Nephrology, Dr. Johnson and Urology, Dr. Hyman. HOSPITAL COURSE: Mr. Palmer is a pleasant 83-year-old gentleman who was admitted to [facility] on 04/04/2019, for acute metabolic encephalopathy, most likely secondary to worsening renal failure. He was also initially treated with antibiotics. These were subsequently discontinued. HIDA scan was consistent with chronic cholecystitis. However, the patient did not have any abdominal pain or tenderness. After discussion with Surgical Service, they gave the opinion that no surgical intervention is needed. He was also seen by Nephrology Service and received intravenous fluids and nephrotoxic medications were held. Creatinine slowly returned to its baseline. 2D echocardiogram could not assess ejection fraction. He went onto have MUGA scan, which showed left ventricular ejection fraction of 54%. He is being discharged to [facility] for further management. On 04/09, Mr. Palmer had sodium of 132, potassium 4.3, creatinine 3.16. White count 11,000, hemoglobin 14.5, and platelet count 136,000. Please note that the patient also had renal ultrasound during this hospitalization. It showed a mass in the right kidney measuring 4 x 4 x 2.6 cm. He was evaluated by Urology Service and will follow up with Urology as outpatient. They recommended observation for now. DISCHARGE DIAGNOSES: 1. Thrombocytopenia. 2. Hypoalbuminemia. POST-ACUTE CARE FOLLOWUP: With primary care provider in one week; with urologist, Dr. Hyman in 2 to 3 weeks and with Nephrology Service in 1 week. DIET: Heart healthy and renal diet. ACTIVITY: As tolerated. Many thanks for allowing me to participate in your patient's care. Please feel free to contact me with any questions or concerns. DISCHARGE DESTINATION: [facility]. TIME SPENT: Total amount of time spent coordinating this discharge: 33 minutes. Job ID: [id number]
[2019-04-11] MEDS ORDERED: levETIRAcetam 500 MG TAB PO SCH (09:00)
== END 2019-04-10 17:26 | disposition swing bed (61) | DRG 682 ==
LOC: ERS 15:43 → T4-A 19:48
PROVIDERS: ADMIT Internal Medicine; ATTEND Internal Medicine
DX: N17.9 Acute kidney failure, unspecified (principal); G93.41 Metabolic encephalopathy; E87.2 Acidosis; E87.1 Hypo-osmolality and hyponatremia; Z66 Do not resuscitate; F03.90 Unspecified dementia, unspecified severity, without behavioral disturbance, psychotic disturbance, mood disturbance, and anxiety; H40.9 Unspecified glaucoma; E11.22 Type 2 diabetes mellitus with diabetic chronic kidney disease; I12.9 Hypertensive chronic kidney disease with stage 1 through stage 4 chronic kidney disease, or unspecified chronic kidney disease; J45.909 Unspecified asthma, uncomplicated; E88.09 Other disorders of plasma-protein metabolism, not elsewhere classified; N18.4 Chronic kidney disease, stage 4 (severe); D32.9 Benign neoplasm of meninges, unspecified; N28.89 Other specified disorders of kidney and ureter; I25.10 Atherosclerotic heart disease of native coronary artery without angina pectoris; D63.1 Anemia in chronic kidney disease; K81.1 Chronic cholecystitis; D69.6 Thrombocytopenia, unspecified; N39.41 Urge incontinence; Z79.84 Long term (current) use of oral hypoglycemic drugs; Z79.82 Long term (current) use of aspirin; Z79.01 Long term (current) use of anticoagulants; Z95.5 Presence of coronary angioplasty implant and graft; Z79.899 Other long term (current) drug therapy
CPT/HCPCS: 36415; 76770; 78227; 78472; 80048; 80076; 81001; 82533; 84484; 85025; 93005; 93010; 93306; A9537; A9604; J0692; J1644; J2060; J2270; J3490